=== PATIENT | female | born 1935 | race Asian ===

== ENCOUNTER 2018-04-27 17:23 | Inpatient (IN) | payer MEDICARE, OTHER ==
[~2018-04-27] VITALS: Ht 152.4 cm; Wt 61.4 kg
[2018-04-27 17:40] LABS: GLUCOSE,POINT OF CARE 123 MG/DL (70-110)
[2018-04-27 18:02] LABS: BASOPHILS % (AUTO) 1.6 % (0.0-2.0); EOSINOPHILS % (AUTO) 6.4 % (1.0-6.0); HEMATOCRIT 21.7 % (36-46); LYMPHOCYTES # (AUTO) 1.2 K/uL (1.0-4.8); LYMPHOCYTES % (AUTO) 21.5 % (22.0-44.0); MEAN CORPUSCULAR HEMOGLOBIN 26.6 pg (26.0-34.0); MEAN CORPUSCULAR HGB CONC 32.5 G/dL (31.0-37.0); MEAN CORPUSCULAR VOLUME 82 fL (80-100); MONOCYTES # (AUTO) 0.5 K/uL (0.1-1.0); MONOCYTES % (AUTO) 8.9 % (2.0-9.0); NEUTROPHILS # (AUTO) 3.3 K/uL (1.8-7.7); NEUTROPHILS % (AUTO) 61.6 % (40.0-70.0); RED BLOOD CELL COUNT(AUTO) 2.65 MIL/uL (4.00-5.20); RED CELL DISTRIBUTION WIDTH 16.5 % (11.5-14.5)
[2018-04-27 18:13] LABS: CALCIUM, TOTAL 8.1 mg/dL (8.8-10.5); CREATININE 3.81 mg/dL (0.60-1.30); POTASSIUM 5.3 mmol/L (3.5-5.1)
[2018-04-27 18:19] LABS: ALBUMIN 2.4 g/dL (3.4-5.0); BILIRUBIN,TOTAL 0.5 mg/dL (0.1-1.0); TOTAL PROTEIN, SERUM 6.6 g/dL (6.4-8.2)
[2018-04-27 18:50] LABS: PLATELET COUNT (AUTO) 71 K/uL (150-450)
[2018-04-27] MEDS ORDERED: GLIP5 PO (19:33)
[2018-04-27] MEDS ORDERED: ROSU10 PO (19:33)
[2018-04-27] MEDS: DOCUSATE SODIUM 100 MG CAPSULE PO SCH (20:40)
[2018-04-27] MEDS ORDERED: ACETAMINOPHEN 325 MG TABLET PO PRN ×2 (20:45)
[2018-04-27] MEDS ORDERED: 0.9% SODIUM CHLORIDE 10 ML SYRINGE IVP PRN (20:45)
[2018-04-27] MEDS ORDERED: ALBUTEROL SULFATE 2.5 MG/0.5 ML NEB SOLUTION NEB PRN (20:45)
[2018-04-27] MEDS ORDERED: ONDANSETRON HCL 4 MG/2 ML VIAL IVP PRN (20:45)
[2018-04-27] MEDS ORDERED: FUROSEMIDE 40 MG/4 ML VIAL IVP ONE (20:45)
[2018-04-27] MEDS ORDERED: BISACODYL 10 MG RECTAL RECTAL SUPPOSITORY PR PRN (20:45)
[2018-04-27] MEDS ORDERED: EPOETIN ALFA 10,000 UNITS/ML VIAL SQ ONE (21:00)
[2018-04-27] MEDS: SOD FERRIC GLUC COMPLX/SUCROSE 125 MG in SODIUM CHLORIDE 0.9% 100 ML IV SCH (21:06)
[2018-04-27] MEDS ORDERED: DEXTROSE 50%-WATER 25 GM/50 ML SYRINGE IVP PRN (21:45)
[2018-04-27 22:01] VITALS: BP 180/84
[2018-04-27 23:00] VITALS: BP 161/79
[2018-04-27] MEDS: AmLODIPine BESYLATE 10 MG TABLET PO SCH (23:58)
[2018-04-28] VITALS (14 sets, daily range): BP systolic 137–170; BP diastolic 50–79
[2018-04-28 06:58] LABS: BASOPHILS % (AUTO) 1.7 % (0.0-2.0); EOSINOPHILS % (AUTO) 10.9 % (1.0-6.0); LYMPHOCYTES # (AUTO) 0.5 K/uL (1.0-4.8); LYMPHOCYTES % (AUTO) 11.2 % (22.0-44.0); MEAN CORPUSCULAR HEMOGLOBIN 26.6 pg (26.0-34.0); MEAN CORPUSCULAR VOLUME 80 fL (80-100); MONOCYTES # (AUTO) 0.6 K/uL (0.1-1.0); MONOCYTES % (AUTO) 12.8 % (2.0-9.0); NEUTROPHILS # (AUTO) 3.1 K/uL (1.8-7.7); NEUTROPHILS % (AUTO) 63.4 % (40.0-70.0); PLATELET COUNT (AUTO) 65 K/uL (150-450); RED BLOOD CELL COUNT(AUTO) 2.39 MIL/uL (4.00-5.20); RED CELL DISTRIBUTION WIDTH 16.2 % (11.5-14.5)
[2018-04-28 07:16] LABS: HEMOGLOBIN 6.3 g/dL (12.0-16.0)
[2018-04-28 07:17] LABS: HEMATOCRIT 19.2 % (36-46)
[2018-04-28 07:21] LABS: ALBUMIN 2.2 g/dL (3.4-5.0); BILIRUBIN,TOTAL 0.5 mg/dL (0.1-1.0); CALCIUM, TOTAL 8.3 mg/dL (8.8-10.5); CREATININE 3.8 mg/dL (0.60-1.30); MAGNESIUM 2.2 mg/dL (1.80-2.40); PHOSPHORUS 5.1 mg/dL (2.5-4.9)
[2018-04-28] MEDS ORDERED: FUROSEMIDE 20 MG/2 ML VIAL IVP ONE (07:45)
[2018-04-28 08:09] LABS: GLUCOMETER DEV NAME(LOC) 5S.1; GLUCOSE,POINT OF CARE 95 MG/DL (70-110)
[2018-04-28] MEDS: ROSUVASTATIN CALCIUM 10 MG TABLET PO SCH (08:18)
[2018-04-28] MEDS: ASPIRIN 81 MG CHEWABLE TABLET PO SCH (08:18)
[2018-04-28] MEDS: PANTOPRAZOLE SODIUM 40 MG DR TABLET PO SCH (08:18)
[2018-04-28] MEDS: DOCUSATE SODIUM 100 MG CAPSULE PO SCH ×2 (08:18→20:34)
[2018-04-28] MEDS: CARVEDILOL 6.25 MG TABLET PO SCH ×2 (08:18→20:34)
[2018-04-28] MEDS ORDERED: SODIUM CHLORIDE 0.9% 500 ML IV ONE (08:59)
[2018-04-28 18:54] LABS: APPEARANCE,URINE CLEAR (CLEAR); BILIRUBIN,URINE NEGATIVE (NEGATIVE); GLUCOSE, URINE (UA) NEGATIVE (NEGATIVE); KETONES,URINE NEGATIVE (NEGATIVE); LEUKOCYTE ESTERASE ,URINE NEGATIVE (NEGATIVE); NITRATE,URINE NEGATIVE (NEGATIVE); OCCULT BLOOD,URINE NEGATIVE (NEGATIVE); PH,URINE 5.5 (5.0-8.0); PROTEIN,URINE SEE CONFIRM (NEGATIVE); UROBILINOGEN,URINE 0.2 mg/dL (<=1.0)
[2018-04-28 19:18] LABS: SULFOSALICYLIC ACID,URINE 3+ (Negative)
[2018-04-28 19:24] LABS: BACTERIA,URINE Rare /HPF (None Seen); RBC,URINE None Seen /HPF (0-2); SQUAMOUS EPITHELIAL CELL,UR Few /LPF (None Seen)
[2018-04-28 20:29] LABS: GLUCOMETER DEV NAME(LOC) 5S.1; GLUCOSE,POINT OF CARE 109 MG/DL (70-110)
[2018-04-28 20:29] LABS: GLUCOMETER DEV NAME(LOC) 5S.2; GLUCOSE,POINT OF CARE 100 MG/DL (70-110)
[2018-04-28] MEDS: AmLODIPine BESYLATE 10 MG TABLET PO SCH (20:34)
[2018-04-28] MEDS: SOD FERRIC GLUC COMPLX/SUCROSE 125 MG in SODIUM CHLORIDE 0.9% 100 ML IV SCH (20:34)
[2018-04-28 21:04] LABS: GLUCOMETER DEV NAME(LOC) 5S.1; GLUCOSE,POINT OF CARE 137 MG/DL (70-110)
[2018-04-28] MEDS ORDERED: SODIUM CHLORIDE 0.9% 250 ML IV ONE (21:36)
[2018-04-29] VITALS (7 sets, daily range): BP systolic 127–155; BP diastolic 41–63
[2018-04-29 06:34] LABS: EOSINOPHILS % (AUTO) 5.6 % (1.0-6.0); HEMATOCRIT 24.6 % (36-46); HEMOGLOBIN 8.2 g/dL (12.0-16.0); LYMPHOCYTES # (AUTO) 1.2 K/uL (1.0-4.8); LYMPHOCYTES % (AUTO) 23.8 % (22.0-44.0); MEAN CORPUSCULAR HEMOGLOBIN 27.8 pg (26.0-34.0); MEAN CORPUSCULAR HGB CONC 33.2 G/dL (31.0-37.0); MEAN CORPUSCULAR VOLUME 84 fL (80-100); MONOCYTES # (AUTO) 0.5 K/uL (0.1-1.0); MONOCYTES % (AUTO) 9.8 % (2.0-9.0); NEUTROPHILS # (AUTO) 3.1 K/uL (1.8-7.7); NEUTROPHILS % (AUTO) 59.8 % (40.0-70.0); PLATELET COUNT (AUTO) 74 K/uL (150-450); RED BLOOD CELL COUNT(AUTO) 2.93 MIL/uL (4.00-5.20); RED CELL DISTRIBUTION WIDTH 17.7 % (11.5-14.5)
[2018-04-29] MEDS: CARVEDILOL 6.25 MG TABLET PO SCH ×2 (08:48→21:21)
[2018-04-29] MEDS: PANTOPRAZOLE SODIUM 40 MG DR TABLET PO SCH (08:49)
[2018-04-29] MEDS: DOCUSATE SODIUM 100 MG CAPSULE PO SCH ×2 (08:49→21:21)
[2018-04-29] MEDS: ROSUVASTATIN CALCIUM 10 MG TABLET PO SCH (08:49)
[2018-04-29] MEDS: ASPIRIN 81 MG CHEWABLE TABLET PO SCH (08:49)
[2018-04-29 12:19] LABS: GLUCOMETER DEV NAME(LOC) 5S.1; GLUCOSE,POINT OF CARE 77 MG/DL (70-110)
[2018-04-29 12:20] LABS: GLUCOMETER DEV NAME(LOC) 5S.1; GLUCOSE,POINT OF CARE 111 MG/DL (70-110)
[2018-04-29] MEDS: FUROSEMIDE 40 MG/4 ML VIAL IVP SCH ×2 (14:49→21:20)
[2018-04-29] MEDS: AmLODIPine BESYLATE 10 MG TABLET PO SCH (21:20)
[2018-04-29] MEDS: SOD FERRIC GLUC COMPLX/SUCROSE 125 MG in SODIUM CHLORIDE 0.9% 100 ML IV SCH (21:20)
[2018-04-29 22:19] LABS: GLUCOMETER DEV NAME(LOC) 5S.1; GLUCOSE,POINT OF CARE 99 MG/DL (70-110)
[2018-04-29 22:20] LABS: GLUCOMETER DEV NAME(LOC) 5S.1; GLUCOSE,POINT OF CARE 108 MG/DL (70-110)
[2018-04-30 05:02] VITALS: BP 133/44
[2018-04-30 06:04] LABS: CALCIUM, TOTAL 8.4 mg/dL (8.8-10.5); CREATININE 3.83 mg/dL (0.60-1.30); MAGNESIUM 2.2 mg/dL (1.80-2.40); PHOSPHORUS 4.7 mg/dL (2.5-4.9); POTASSIUM 4.7 mmol/L (3.5-5.1)
[2018-04-30 07:28] VITALS: BP 147/63
[2018-04-30] MEDS: ASPIRIN 81 MG CHEWABLE TABLET PO SCH (08:25)
[2018-04-30] MEDS: PANTOPRAZOLE SODIUM 40 MG DR TABLET PO SCH (08:25)
[2018-04-30] MEDS: ROSUVASTATIN CALCIUM 10 MG TABLET PO SCH (08:25)
[2018-04-30] MEDS: CARVEDILOL 6.25 MG TABLET PO SCH ×2 (08:25→21:17)
[2018-04-30] MEDS: DOCUSATE SODIUM 100 MG CAPSULE PO SCH ×2 (08:25→21:17)
[2018-04-30] MEDS: FUROSEMIDE 40 MG/4 ML VIAL IVP SCH ×2 (08:26→21:17)
[2018-04-30 10:58] LABS: GLUCOMETER DEV NAME(LOC) 5S.1; GLUCOSE,POINT OF CARE 76 MG/DL (70-110)
[2018-04-30 12:02] VITALS: BP 151/66
[2018-04-30 15:15] LABS: GLUCOMETER DEV NAME(LOC) 5S.2; GLUCOSE,POINT OF CARE 115 MG/DL (70-110)
[2018-04-30 17:18] VITALS: BP 160/61
[2018-04-30 19:42] VITALS: BP 154/65
[2018-04-30] MEDS: AmLODIPine BESYLATE 10 MG TABLET PO SCH (21:16)
[2018-04-30] MEDS: SOD FERRIC GLUC COMPLX/SUCROSE 125 MG in SODIUM CHLORIDE 0.9% 100 ML IV SCH (21:18)
[2018-04-30 23:32] VITALS: BP 135/52
[2018-05-01 03:50] VITALS: BP 135/56
[2018-05-01 06:09] LABS: GLUCOMETER DEV NAME(LOC) 5S.1; GLUCOSE,POINT OF CARE 114 MG/DL (70-110)
[2018-05-01 06:09] LABS: GLUCOMETER DEV NAME(LOC) 5S.1; GLUCOSE,POINT OF CARE 130 MG/DL (70-110)
[2018-05-01 07:01] VITALS: BP 143/49
[2018-05-01] MEDS: CARVEDILOL 6.25 MG TABLET PO SCH ×2 (08:01→20:19)
[2018-05-01] MEDS: DOCUSATE SODIUM 100 MG CAPSULE PO SCH ×2 (08:01→20:19)
[2018-05-01] MEDS: PANTOPRAZOLE SODIUM 40 MG DR TABLET PO SCH (08:01)
[2018-05-01] MEDS: ROSUVASTATIN CALCIUM 10 MG TABLET PO SCH (08:01)
[2018-05-01] MEDS: ASPIRIN 81 MG CHEWABLE TABLET PO SCH (08:01)
[2018-05-01] MEDS: FUROSEMIDE 40 MG/4 ML VIAL IVP SCH ×2 (08:01→20:19)
[2018-05-01] MEDS: EPOETIN ALFA 10,000 UNITS/ML VIAL SQ SCH (08:02)
[2018-05-01 08:04] LABS: GLUCOMETER DEV NAME(LOC) 5S.2; GLUCOSE,POINT OF CARE 82 MG/DL (70-110)
[2018-05-01 10:30] LABS: BASOPHILS % (AUTO) 1.4 % (0.0-2.0); HEMATOCRIT 25.2 % (36-46); HEMOGLOBIN 8.2 g/dL (12.0-16.0); LYMPHOCYTES % (AUTO) 18.6 % (22.0-44.0); MEAN CORPUSCULAR HEMOGLOBIN 27.3 pg (26.0-34.0); MEAN CORPUSCULAR HGB CONC 32.7 G/dL (31.0-37.0); MEAN CORPUSCULAR VOLUME 84 fL (80-100); MONOCYTES # (AUTO) 0.5 K/uL (0.1-1.0); MONOCYTES % (AUTO) 9.9 % (2.0-9.0); NEUTROPHILS # (AUTO) 3.4 K/uL (1.8-7.7); NEUTROPHILS % (AUTO) 64.1 % (40.0-70.0); PLATELET COUNT (AUTO) 80 K/uL (150-450); RED BLOOD CELL COUNT(AUTO) 3.02 MIL/uL (4.00-5.20); RED CELL DISTRIBUTION WIDTH 17.8 % (11.5-14.5)
[2018-05-01 10:36] LABS: INR 1.2 (0.9-1.1)
[2018-05-01 10:37] LABS: CALCIUM, TOTAL 8.4 mg/dL (8.8-10.5); CREATININE 3.92 mg/dL (0.60-1.30); POTASSIUM 4.5 mmol/L (3.5-5.1)
[2018-05-01 10:49] LABS: ALBUMIN 2.4 g/dL (3.4-5.0); BILIRUBIN,TOTAL 0.6 mg/dL (0.1-1.0); TOTAL PROTEIN, SERUM 6.3 g/dL (6.4-8.2)
[2018-05-01 11:39] VITALS: BP 145/61
[2018-05-01 13:24] LABS: GLUCOMETER DEV NAME(LOC) 5S.1; GLUCOSE,POINT OF CARE 86 MG/DL (70-110)
[2018-05-01] MEDS ORDERED: HEPARIN SODIUM,PORCINE 1,000 UNITS/ML 10 ML VIAL ONE (13:31)
[2018-05-01] MEDS ORDERED: HEPARIN SODIUM 1000 UNITS/NS 500 ML ONE (13:31)
[2018-05-01] MEDS ORDERED: FentaNYL CITRATE-PF 100 MCG/2 ML VIAL ONE (14:05)
[2018-05-01] MEDS ORDERED: NALOXONE HCL 0.4 MG/ML VIAL ONE (14:05)
[2018-05-01] MEDS ORDERED: MIDAZOLAM HCL 2 MG/2 ML VIAL ONE (14:05)
[2018-05-01] MEDS ORDERED: FLUMAZENIL 0.1 MG/ML 5 ML VIAL IVP ONE (14:05)
[2018-05-01] MEDS ORDERED: MIDAZOLAM HCL 2 MG/2 ML VIAL IVP ONE (14:30)
[2018-05-01] MEDS ORDERED: FentaNYL CITRATE-PF 100 MCG/2 ML VIAL IVP ONE (14:30)
[2018-05-01] MEDS ORDERED: CeFAZolin 1 GM/DEXTROSE 50 ML IV ONE (14:30)
[2018-05-01 15:54] VITALS: BP 167/64
[2018-05-01 18:34] LABS: GLUCOMETER DEV NAME(LOC) 5S.2; GLUCOSE,POINT OF CARE 88 MG/DL (70-110)
[2018-05-01 20:13] VITALS: BP 150/63
[2018-05-01] MEDS: SOD FERRIC GLUC COMPLX/SUCROSE 125 MG in SODIUM CHLORIDE 0.9% 100 ML IV SCH (20:19)
[2018-05-01] MEDS: AmLODIPine BESYLATE 10 MG TABLET PO SCH (20:20)
[2018-05-01 21:14] LABS: GLUCOMETER DEV NAME(LOC) 5S.1; GLUCOSE,POINT OF CARE 109 MG/DL (70-110)
[2018-05-01 23:51] VITALS: BP 132/67
[2018-05-02 04:45] VITALS: BP 117/57
[2018-05-02 05:24] LABS: GLUCOMETER DEV NAME(LOC) 5S.1; GLUCOSE,POINT OF CARE 98 MG/DL (70-110)
[2018-05-02 07:24] LABS: BASOPHILS % (AUTO) 1.5 % (0.0-2.0); EOSINOPHILS % (AUTO) 4.4 % (1.0-6.0); HEMATOCRIT 25.7 % (36-46); HEMOGLOBIN 8.4 g/dL (12.0-16.0); LYMPHOCYTES # (AUTO) 0.6 K/uL (1.0-4.8); LYMPHOCYTES % (AUTO) 10.3 % (22.0-44.0); MEAN CORPUSCULAR HEMOGLOBIN 27.8 pg (26.0-34.0); MEAN CORPUSCULAR HGB CONC 32.9 G/dL (31.0-37.0); MEAN CORPUSCULAR VOLUME 85 fL (80-100); MONOCYTES # (AUTO) 0.7 K/uL (0.1-1.0); NEUTROPHILS # (AUTO) 4.5 K/uL (1.8-7.7); NEUTROPHILS % (AUTO) 72.8 % (40.0-70.0); PLATELET COUNT (AUTO) 75 K/uL (150-450); RED BLOOD CELL COUNT(AUTO) 3.03 MIL/uL (4.00-5.20); RED CELL DISTRIBUTION WIDTH 18.1 % (11.5-14.5)
[2018-05-02] MEDS ORDERED: SODIUM CHLORIDE 0.9% 2,000 ML IV ONE (07:39)
[2018-05-02] MEDS: FUROSEMIDE 40 MG/4 ML VIAL IVP SCH ×2 (07:42→20:23)
[2018-05-02] MEDS: ASPIRIN 81 MG CHEWABLE TABLET PO SCH (07:42)
[2018-05-02] MEDS: DOCUSATE SODIUM 100 MG CAPSULE PO SCH ×2 (07:42→20:24)
[2018-05-02] MEDS: ROSUVASTATIN CALCIUM 10 MG TABLET PO SCH (07:42)
[2018-05-02] MEDS: PANTOPRAZOLE SODIUM 40 MG DR TABLET PO SCH (07:43)
[2018-05-02] MEDS: CARVEDILOL 6.25 MG TABLET PO SCH ×3 (07:47→20:24)
[2018-05-02 07:57] LABS: ALBUMIN 2.3 g/dL (3.4-5.0); BILIRUBIN,TOTAL 0.6 mg/dL (0.1-1.0); CALCIUM, TOTAL 8.5 mg/dL (8.8-10.5); CREATININE 3.86 mg/dL (0.60-1.30); POTASSIUM 4.4 mmol/L (3.5-5.1); TOTAL PROTEIN, SERUM 6.2 g/dL (6.4-8.2)
[2018-05-02 08:13] VITALS: BP 140/59
[2018-05-02] MEDS ORDERED: HEPARIN SODIUM,PORCINE 1,000 UNITS/ML VIAL IVP ONE ×2 (12:00)
[2018-05-02 12:15] VITALS: BP 180/69
[2018-05-02 13:30] VITALS: BP 136/63
[2018-05-02] MEDS ORDERED: HEPARIN SODIUM,PORCINE 1,000 UNITS/ML VIAL ONE (15:11)
[2018-05-02 15:20] VITALS: BP 159/55
[2018-05-02] MEDS: INSULIN LISPRO 100 UNITS/ML SQ PRN (17:59)
[2018-05-02 20:00] VITALS: BP 144/49
[2018-05-02] MEDS: SOD FERRIC GLUC COMPLX/SUCROSE 125 MG in SODIUM CHLORIDE 0.9% 100 ML IV SCH (20:24)
[2018-05-02] MEDS: AmLODIPine BESYLATE 10 MG TABLET PO SCH (20:24)
[2018-05-03 01:35] VITALS: BP 134/55
[2018-05-03 04:58] VITALS: BP 147/50
[2018-05-03 06:20] LABS: GLUCOMETER DEV NAME(LOC) 5S.1; GLUCOSE,POINT OF CARE 186 MG/DL (70-110)
[2018-05-03 07:03] LABS: BASOPHILS % (AUTO) 0.8 % (0.0-2.0); EOSINOPHILS % (AUTO) 7.6 % (1.0-6.0); HEMATOCRIT 25.2 % (36-46); HEMOGLOBIN 8.2 g/dL (12.0-16.0); LYMPHOCYTES # (AUTO) 1.3 K/uL (1.0-4.8); LYMPHOCYTES % (AUTO) 19.4 % (22.0-44.0); MEAN CORPUSCULAR HEMOGLOBIN 27.5 pg (26.0-34.0); MEAN CORPUSCULAR HGB CONC 32.6 G/dL (31.0-37.0); MEAN CORPUSCULAR VOLUME 84 fL (80-100); MONOCYTES # (AUTO) 0.8 K/uL (0.1-1.0); MONOCYTES % (AUTO) 12.5 % (2.0-9.0); NEUTROPHILS # (AUTO) 3.9 K/uL (1.8-7.7); NEUTROPHILS % (AUTO) 59.7 % (40.0-70.0); PLATELET COUNT (AUTO) 60 K/uL (150-450); RED BLOOD CELL COUNT(AUTO) 2.99 MIL/uL (4.00-5.20); RED CELL DISTRIBUTION WIDTH 18.3 % (11.5-14.5)
[2018-05-03 07:26] LABS: ALBUMIN 2.2 g/dL (3.4-5.0); BILIRUBIN,TOTAL 0.6 mg/dL (0.1-1.0); CALCIUM, TOTAL 8.3 mg/dL (8.8-10.5); CREATININE 3.02 mg/dL (0.60-1.30); POTASSIUM 3.7 mmol/L (3.5-5.1); TOTAL PROTEIN, SERUM 5.8 g/dL (6.4-8.2)
[2018-05-03 07:52] VITALS: BP 142/48
[2018-05-03] MEDS: FUROSEMIDE 40 MG/4 ML VIAL IVP SCH ×2 (08:57→20:26)
[2018-05-03] MEDS: PANTOPRAZOLE SODIUM 40 MG DR TABLET PO SCH (08:57)
[2018-05-03] MEDS: ROSUVASTATIN CALCIUM 10 MG TABLET PO SCH (08:57)
[2018-05-03] MEDS: ASPIRIN 81 MG CHEWABLE TABLET PO SCH (08:57)
[2018-05-03] MEDS: DOCUSATE SODIUM 100 MG CAPSULE PO SCH ×2 (08:57→20:27)
[2018-05-03] MEDS: EPOETIN ALFA 10,000 UNITS/ML VIAL SQ SCH (08:57)
[2018-05-03] MEDS: CARVEDILOL 6.25 MG TABLET PO SCH ×2 (09:00→20:27)
[2018-05-03 09:49] LABS: GLUCOMETER DEV NAME(LOC) 5S.2; GLUCOSE,POINT OF CARE 148 MG/DL (70-110)
[2018-05-03 09:49] LABS: GLUCOMETER DEV NAME(LOC) 5S.2; GLUCOSE,POINT OF CARE 98 MG/DL (70-110)
[2018-05-03 09:49] LABS: GLUCOMETER DEV NAME(LOC) 5S.2; GLUCOSE,POINT OF CARE 70 MG/DL (70-110)
[2018-05-03 11:36] VITALS: BP 153/64
[2018-05-03 14:10] LABS: GLUCOMETER DEV NAME(LOC) 5S.2; GLUCOSE,POINT OF CARE 100 MG/DL (70-110)
[2018-05-03 17:18] VITALS: BP 156/60
[2018-05-03 20:09] VITALS: BP 167/65
[2018-05-03] MEDS: SOD FERRIC GLUC COMPLX/SUCROSE 125 MG in SODIUM CHLORIDE 0.9% 100 ML IV SCH (20:26)
[2018-05-03] MEDS: AmLODIPine BESYLATE 10 MG TABLET PO SCH (20:27)
[2018-05-03 22:09] LABS: GLUCOMETER DEV NAME(LOC) 5S.2; GLUCOSE,POINT OF CARE 125 MG/DL (70-110)
[2018-05-03 23:39] LABS: GLUCOMETER DEV NAME(LOC) 5S.1; GLUCOSE,POINT OF CARE 118 MG/DL (70-110)
[2018-05-04 00:03] VITALS: BP 151/60
[2018-05-04 04:05] VITALS: BP 136/51
[2018-05-04 06:54] LABS: GLUCOMETER DEV NAME(LOC) 5S.1; GLUCOSE,POINT OF CARE 79 MG/DL (70-110)
[2018-05-04 07:10] LABS: EOSINOPHILS % (AUTO) 8.4 % (1.0-6.0); HEMATOCRIT 25.8 % (36-46); HEMOGLOBIN 8.3 g/dL (12.0-16.0); LYMPHOCYTES # (AUTO) 1.2 K/uL (1.0-4.8); LYMPHOCYTES % (AUTO) 17.4 % (22.0-44.0); MEAN CORPUSCULAR HEMOGLOBIN 27.4 pg (26.0-34.0); MEAN CORPUSCULAR HGB CONC 32.2 G/dL (31.0-37.0); MEAN CORPUSCULAR VOLUME 85 fL (80-100); MONOCYTES # (AUTO) 0.8 K/uL (0.1-1.0); MONOCYTES % (AUTO) 12.2 % (2.0-9.0); NEUTROPHILS # (AUTO) 4.1 K/uL (1.8-7.7); PLATELET COUNT (AUTO) 62 K/uL (150-450); RED BLOOD CELL COUNT(AUTO) 3.03 MIL/uL (4.00-5.20)
[2018-05-04 07:17] LABS: ALBUMIN 2.2 g/dL (3.4-5.0); BILIRUBIN,TOTAL 0.7 mg/dL (0.1-1.0); CALCIUM, TOTAL 8.3 mg/dL (8.8-10.5); CREATININE 3.16 mg/dL (0.60-1.30); POTASSIUM 3.4 mmol/L (3.5-5.1)
[2018-05-04] MEDS: ASPIRIN 81 MG CHEWABLE TABLET PO SCH (08:21)
[2018-05-04] MEDS: PANTOPRAZOLE SODIUM 40 MG DR TABLET PO SCH (08:21)
[2018-05-04] MEDS: ROSUVASTATIN CALCIUM 10 MG TABLET PO SCH (08:21)
[2018-05-04] MEDS: DOCUSATE SODIUM 100 MG CAPSULE PO SCH ×2 (08:22→20:05)
[2018-05-04] MEDS: FUROSEMIDE 40 MG/4 ML VIAL IVP SCH ×2 (08:27→20:06)
[2018-05-04 08:50] VITALS: BP 159/51
[2018-05-04] MEDS: CARVEDILOL 6.25 MG TABLET PO SCH ×2 (09:00→20:05)
[2018-05-04 11:18] VITALS: BP 149/60
[2018-05-04] MEDS ORDERED: HEPARIN SODIUM,PORCINE 1,000 UNITS/ML VIAL IVP ONE (11:42)
[2018-05-04] MEDS ORDERED: SODIUM CHLORIDE 0.9% 2,000 ML IV ONE ×2 (12:39→13:32)
[2018-05-04 15:19] LABS: GLUCOMETER DEV NAME(LOC) 5S.2; GLUCOSE,POINT OF CARE 74 MG/DL (70-110)
[2018-05-04 15:50] VITALS: BP 185/77
[2018-05-04] MEDS: AmLODIPine BESYLATE 10 MG TABLET PO SCH (20:05)
[2018-05-04] MEDS: SOD FERRIC GLUC COMPLX/SUCROSE 125 MG in SODIUM CHLORIDE 0.9% 100 ML IV SCH (20:05)
[2018-05-04 20:28] VITALS: BP 185/62
[2018-05-05] VITALS (7 sets, daily range): BP systolic 124–178; BP diastolic 49–73
[2018-05-05] MEDS ORDERED: SODIUM CHLORIDE 0.9% 1,000 ML IV ONE (06:30)
[2018-05-05] MEDS ORDERED: HEPARIN SODIUM,PORCINE 5,000 UNITS/ML VIAL ONE (07:19)
[2018-05-05] MEDS ORDERED: SODIUM CHLORIDE 0.9% 10 ML ONE (07:20)
[2018-05-05] MEDS ORDERED: LIDOCAINE/PF 1% 30 ML VIAL ONE (07:20)
[2018-05-05 07:32] LABS: EOSINOPHILS % (AUTO) 7.9 % (1.0-6.0); HEMATOCRIT 26.9 % (36-46); HEMOGLOBIN 8.6 g/dL (12.0-16.0); LYMPHOCYTES # (AUTO) 1.1 K/uL (1.0-4.8); LYMPHOCYTES % (AUTO) 12.2 % (22.0-44.0); MEAN CORPUSCULAR HEMOGLOBIN 27.7 pg (26.0-34.0); MEAN CORPUSCULAR HGB CONC 32.1 G/dL (31.0-37.0); MEAN CORPUSCULAR VOLUME 86 fL (80-100); MONOCYTES % (AUTO) 11.6 % (2.0-9.0); NEUTROPHILS % (AUTO) 67.3 % (40.0-70.0); PLATELET COUNT (AUTO) 50 K/uL (150-450); RED BLOOD CELL COUNT(AUTO) 3.12 MIL/uL (4.00-5.20); RED CELL DISTRIBUTION WIDTH 19.5 % (11.5-14.5)
[2018-05-05 07:46] LABS: ALBUMIN 2.4 g/dL (3.4-5.0); BILIRUBIN,TOTAL 1.1 mg/dL (0.1-1.0); CALCIUM, TOTAL 8.1 mg/dL (8.8-10.5); CREATININE 2.23 mg/dL (0.60-1.30); POTASSIUM 3.2 mmol/L (3.5-5.1); TOTAL PROTEIN, SERUM 6.4 g/dL (6.4-8.2)
[2018-05-05] MEDS ORDERED: ONDANSETRON HCL 4 MG/2 ML VIAL ONE (09:10)
[2018-05-05] MEDS ORDERED: ONDANSETRON HCL 4 MG/2 ML VIAL IVP ONE (09:15)
[2018-05-05] MEDS ORDERED: HEPARIN SODIUM,PORCINE 1,000 UNITS/ML VIAL IVP ONE ×2 (10:51→12:00)
[2018-05-05 11:05] LABS: GLUCOMETER DEV NAME(LOC) 5S.2; GLUCOSE,POINT OF CARE 74 MG/DL (70-110)
[2018-05-05 11:09] LABS: GLUCOMETER DEV NAME(LOC) 5S.1; GLUCOSE,POINT OF CARE 102 MG/DL (70-110)
[2018-05-05 11:10] LABS: GLUCOMETER DEV NAME(LOC) 5S.1; GLUCOSE,POINT OF CARE 152 MG/DL (70-110)
[2018-05-05] MEDS ORDERED: KETAMINE HCL 50 MG/ML 10 ML VIAL IVP ONE (12:00)
[2018-05-05] MEDS ORDERED: PROPOFOL 1% 20 ML VIAL IVP ONE (12:00)
[2018-05-05] MEDS ORDERED: LIDOCAINE/PF 2% 5 ML VIAL INJ ONE (12:00)
[2018-05-05] MEDS ORDERED: MIDAZOLAM HCL 2 MG/2 ML VIAL IVP ONE (12:00)
[2018-05-05] MEDS ORDERED: HEPARIN SODIUM,PORCINE 1,000 UNITS/ML 10 ML VIAL IVP ONE (12:00)
[2018-05-05] MEDS: ASPIRIN 81 MG CHEWABLE TABLET PO SCH (12:36)
[2018-05-05 13:29] LABS: GLUCOMETER DEV NAME(LOC) 5S.1; GLUCOSE,POINT OF CARE 102 MG/DL (70-110)
[2018-05-05] MEDS: FUROSEMIDE 40 MG/4 ML VIAL IVP SCH ×2 (15:38→21:46)
[2018-05-05] MEDS: PANTOPRAZOLE SODIUM 40 MG DR TABLET PO SCH (15:38)
[2018-05-05] MEDS: ROSUVASTATIN CALCIUM 10 MG TABLET PO SCH (15:38)
[2018-05-05] MEDS: CARVEDILOL 6.25 MG TABLET PO SCH ×2 (15:38→21:00)
[2018-05-05] MEDS: EPOETIN ALFA 10,000 UNITS/ML VIAL SQ SCH (15:39)
[2018-05-05] MEDS: DOCUSATE SODIUM 100 MG CAPSULE PO SCH ×2 (15:39→21:47)
[2018-05-05] MEDS: AmLODIPine BESYLATE 10 MG TABLET PO SCH (21:48)
[2018-05-05] MEDS: SOD FERRIC GLUC COMPLX/SUCROSE 125 MG in SODIUM CHLORIDE 0.9% 100 ML IV SCH (21:49)
[2018-05-06 01:34] LABS: GLUCOMETER DEV NAME(LOC) 5S.2; GLUCOSE,POINT OF CARE 124 MG/DL (70-110)
[2018-05-06 01:34] LABS: GLUCOMETER DEV NAME(LOC) 5S.2; GLUCOSE,POINT OF CARE 101 MG/DL (70-110)
[2018-05-06 05:14] VITALS: BP 133/51
[2018-05-06 07:50] LABS: BILIRUBIN,TOTAL 1.6 mg/dL (0.1-1.0); CALCIUM, TOTAL 7.7 mg/dL (8.8-10.5); CREATININE 2.23 mg/dL (0.60-1.30); PHOSPHORUS 2.7 mg/dL (2.5-4.9); POTASSIUM 3.2 mmol/L (3.5-5.1); TOTAL PROTEIN, SERUM 5.5 g/dL (6.4-8.2)
[2018-05-06 08:02] LABS: BASOPHILS % (AUTO) 0.9 % (0.0-2.0); HEMATOCRIT 23.9 % (36-46); HEMOGLOBIN 7.6 g/dL (12.0-16.0); LYMPHOCYTES # (AUTO) 0.7 K/uL (1.0-4.8); LYMPHOCYTES % (AUTO) 9.7 % (22.0-44.0); MEAN CORPUSCULAR HEMOGLOBIN 26.9 pg (26.0-34.0); MEAN CORPUSCULAR HGB CONC 31.7 G/dL (31.0-37.0); MEAN CORPUSCULAR VOLUME 85 fL (80-100); MONOCYTES # (AUTO) 1.1 K/uL (0.1-1.0); MONOCYTES % (AUTO) 15.3 % (2.0-9.0); NEUTROPHILS # (AUTO) 4.6 K/uL (1.8-7.7); NEUTROPHILS % (AUTO) 66.1 % (40.0-70.0); PLATELET COUNT (AUTO) 43 K/uL (150-450); RED BLOOD CELL COUNT(AUTO) 2.81 MIL/uL (4.00-5.20); RED CELL DISTRIBUTION WIDTH 20.9 % (11.5-14.5)
[2018-05-06] MEDS: FUROSEMIDE 40 MG/4 ML VIAL IVP SCH (08:23)
[2018-05-06] MEDS: PANTOPRAZOLE SODIUM 40 MG DR TABLET PO SCH (08:23)
[2018-05-06] MEDS: ASPIRIN 81 MG CHEWABLE TABLET PO SCH (08:23)
[2018-05-06] MEDS: DOCUSATE SODIUM 100 MG CAPSULE PO SCH ×2 (08:24→20:03)
[2018-05-06] MEDS: ROSUVASTATIN CALCIUM 10 MG TABLET PO SCH (08:24)
[2018-05-06] MEDS: CARVEDILOL 6.25 MG TABLET PO SCH ×2 (08:29→20:03)
[2018-05-06] MEDS ORDERED: POTASSIUM CHLORIDE 20 MEQ ER TABLET PO ONE (08:45)
[2018-05-06 08:54] VITALS: BP 122/44
[2018-05-06 11:16] VITALS: BP 129/44
[2018-05-06 14:20] LABS: GLUCOMETER DEV NAME(LOC) 5S.1; GLUCOSE,POINT OF CARE 80 MG/DL (70-110)
[2018-05-06 15:45] VITALS: BP 134/47
[2018-05-06 19:30] VITALS: BP 140/58
[2018-05-06] MEDS: AmLODIPine BESYLATE 10 MG TABLET PO SCH (20:03)
[2018-05-06] MEDS: SOD FERRIC GLUC COMPLX/SUCROSE 125 MG in SODIUM CHLORIDE 0.9% 100 ML IV SCH (20:06)
[2018-05-06 20:19] LABS: GLUCOMETER DEV NAME(LOC) 5S.2; GLUCOSE,POINT OF CARE 181 MG/DL (70-110)
[2018-05-06 20:19] LABS: GLUCOMETER DEV NAME(LOC) 5S.2; GLUCOSE,POINT OF CARE 142 MG/DL (70-110)
[2018-05-06] MEDS ORDERED: SODIUM CHLORIDE 0.9% 250 ML IV ONE (22:56)
[2018-05-06 23:36] VITALS: BP 131/48
[2018-05-07 06:50] LABS: GLUCOMETER DEV NAME(LOC) 5S.1; GLUCOSE,POINT OF CARE 125 MG/DL (70-110)
[2018-05-07 06:51] LABS: GLUCOMETER DEV NAME(LOC) 5S.1; GLUCOSE,POINT OF CARE 83 MG/DL (70-110)
[2018-05-07 07:01] VITALS: BP 126/49
[2018-05-07 07:49] LABS: HEMATOCRIT 22.3 % (36-46); HEMOGLOBIN 7.2 g/dL (12.0-16.0); MEAN CORPUSCULAR HEMOGLOBIN 27.7 pg (26.0-34.0); MEAN CORPUSCULAR HGB CONC 32.3 G/dL (31.0-37.0); MEAN CORPUSCULAR VOLUME 86 fL (80-100); RED CELL DISTRIBUTION WIDTH 21.1 % (11.5-14.5)
[2018-05-07 07:51] LABS: PLATELET COUNT (AUTO) 49 K/uL (150-450)
[2018-05-07 07:58] LABS: ALBUMIN 2.2 g/dL (3.4-5.0); BILIRUBIN,TOTAL 2.4 mg/dL (0.1-1.0); CALCIUM, TOTAL 7.7 mg/dL (8.8-10.5); CREATININE 3.09 mg/dL (0.60-1.30); POTASSIUM 4.1 mmol/L (3.5-5.1); TOTAL PROTEIN, SERUM 5.8 g/dL (6.4-8.2)
[2018-05-07] MEDS: CARVEDILOL 6.25 MG TABLET PO SCH ×2 (08:31→20:23)
[2018-05-07] MEDS: ROSUVASTATIN CALCIUM 10 MG TABLET PO SCH (08:32)
[2018-05-07] MEDS: PANTOPRAZOLE SODIUM 40 MG DR TABLET PO SCH (08:32)
[2018-05-07] MEDS: DOCUSATE SODIUM 100 MG CAPSULE PO SCH ×2 (08:32→20:23)
[2018-05-07] MEDS: ASPIRIN 81 MG CHEWABLE TABLET PO SCH (08:32)
[2018-05-07 09:58] LABS: BAND NEUTROPHILS % (MANUAL) 5 % (0-5); EOSINOPHILS % (MANUAL) 10 % (1-6); LYMPHOCYTES % (MANUAL) 17 % (22-44); MONOCYTES % (MANUAL) 10 % (2-9); SEGMENTED NEUTROPHILS % 58 % (40-70)
[2018-05-07 12:45] LABS: GLUCOMETER DEV NAME(LOC) 5S.1; GLUCOSE,POINT OF CARE 99 MG/DL (70-110)
[2018-05-07 16:05] VITALS: BP 145/53
[2018-05-07 19:42] VITALS: BP 152/60
[2018-05-07] MEDS: AmLODIPine BESYLATE 10 MG TABLET PO SCH (20:23)
[2018-05-07] MEDS: SOD FERRIC GLUC COMPLX/SUCROSE 125 MG in SODIUM CHLORIDE 0.9% 100 ML IV SCH (20:24)
[2018-05-08 00:45] LABS: GLUCOMETER DEV NAME(LOC) 5S.1; GLUCOSE,POINT OF CARE 123 MG/DL (70-110)
[2018-05-08 00:45] LABS: GLUCOMETER DEV NAME(LOC) 5S.1; GLUCOSE,POINT OF CARE 96 MG/DL (70-110)
[2018-05-08 04:01] VITALS: BP 132/77
[2018-05-08 06:30] LABS: GLUCOMETER DEV NAME(LOC) 5S.2; GLUCOSE,POINT OF CARE 77 MG/DL (70-110)
[2018-05-08 08:02] VITALS: BP 147/52
[2018-05-08] MEDS ORDERED: SODIUM CHLORIDE 0.9% 3,000 ML IV ONE (08:06)
[2018-05-08 08:36] LABS: HEMATOCRIT 23.6 % (36-46); HEMOGLOBIN 7.7 g/dL (12.0-16.0); MEAN CORPUSCULAR HEMOGLOBIN 27.8 pg (26.0-34.0); MEAN CORPUSCULAR HGB CONC 32.5 G/dL (31.0-37.0); MEAN CORPUSCULAR VOLUME 85 fL (80-100); PLATELET COUNT (AUTO) 61 K/uL (150-450); RED BLOOD CELL COUNT(AUTO) 2.77 MIL/uL (4.00-5.20); RED CELL DISTRIBUTION WIDTH 21.3 % (11.5-14.5)
[2018-05-08] MEDS: CARVEDILOL 6.25 MG TABLET PO SCH ×2 (09:00→20:39)
[2018-05-08 09:01] LABS: ALBUMIN 2.4 g/dL (3.4-5.0); BILIRUBIN,TOTAL 1.5 mg/dL (0.1-1.0); CREATININE 3.51 mg/dL (0.60-1.30); POTASSIUM 4.2 mmol/L (3.5-5.1); TOTAL PROTEIN, SERUM 6.2 g/dL (6.4-8.2)
[2018-05-08 10:54] LABS: GLUCOMETER DEV NAME(LOC) 5S.2; GLUCOSE,POINT OF CARE 115 MG/DL (70-110)
[2018-05-08 11:18] LABS: BAND NEUTROPHILS % (MANUAL) 4 % (0-5); EOSINOPHILS % (MANUAL) 9 % (1-6); LYMPHOCYTES % (MANUAL) 15 % (22-44); MONOCYTES % (MANUAL) 12 % (2-9); SEGMENTED NEUTROPHILS % 60 % (40-70)
[2018-05-08 11:42] VITALS: BP 127/50
[2018-05-08] MEDS: ROSUVASTATIN CALCIUM 10 MG TABLET PO SCH (12:55)
[2018-05-08] MEDS: DOCUSATE SODIUM 100 MG CAPSULE PO SCH ×2 (12:55→20:39)
[2018-05-08] MEDS: ASPIRIN 81 MG CHEWABLE TABLET PO SCH (12:55)
[2018-05-08] MEDS: PANTOPRAZOLE SODIUM 40 MG DR TABLET PO SCH (12:56)
[2018-05-08] MEDS: EPOETIN ALFA 10,000 UNITS/ML VIAL SQ SCH (12:57)
[2018-05-08 15:06] VITALS: BP 140/47
[2018-05-08] MEDS ORDERED: HEPARIN SODIUM,PORCINE 1,000 UNITS/ML VIAL IVP ONE (16:10)
[2018-05-08 16:55] LABS: % IRON SATURATION 29.1 % (22-44)
[2018-05-08 16:59] LABS: D-DIMER 4.21 mg/L FEU (0.00-0.50); INR 1.1 (0.9-1.1); PROTHROMBIN TIME 11.1 SEC (9.4-11.6)
[2018-05-08] MEDS: INSULIN LISPRO 100 UNITS/ML SQ PRN (18:03)
[2018-05-08 19:51] VITALS: BP 143/54
[2018-05-08] MEDS: AmLODIPine BESYLATE 10 MG TABLET PO SCH (20:39)
[2018-05-08] MEDS: SOD FERRIC GLUC COMPLX/SUCROSE 125 MG in SODIUM CHLORIDE 0.9% 100 ML IV SCH (20:40)
[2018-05-08 23:44] VITALS: BP 118/69
[2018-05-09 03:49] LABS: GLUCOMETER DEV NAME(LOC) 5S.1; GLUCOSE,POINT OF CARE 196 MG/DL (70-110)
[2018-05-09 03:49] LABS: GLUCOMETER DEV NAME(LOC) 5S.1; GLUCOSE,POINT OF CARE 69 MG/DL (70-110)
[2018-05-09 03:49] LABS: GLUCOMETER DEV NAME(LOC) 5S.1; GLUCOSE,POINT OF CARE 84 MG/DL (70-110)
[2018-05-09 03:49] LABS: GLUCOMETER DEV NAME(LOC) 5S.1; GLUCOSE,POINT OF CARE 68 MG/DL (70-110)
[2018-05-09 04:50] VITALS: BP 140/50
[2018-05-09 06:36] LABS: GLUCOMETER DEV NAME(LOC) 5S.2; GLUCOSE,POINT OF CARE 83 MG/DL (70-110)
[2018-05-09 06:57] LABS: BASOPHILS % (AUTO) 1.3 % (0.0-2.0); HEMATOCRIT 22.8 % (36-46); HEMOGLOBIN 7.4 g/dL (12.0-16.0); LYMPHOCYTES # (AUTO) 0.6 K/uL (1.0-4.8); LYMPHOCYTES % (AUTO) 10.6 % (22.0-44.0); MEAN CORPUSCULAR HEMOGLOBIN 27.8 pg (26.0-34.0); MEAN CORPUSCULAR HGB CONC 32.2 G/dL (31.0-37.0); MEAN CORPUSCULAR VOLUME 86 fL (80-100); MONOCYTES % (AUTO) 16.5 % (2.0-9.0); NEUTROPHILS # (AUTO) 3.7 K/uL (1.8-7.7); NEUTROPHILS % (AUTO) 62.6 % (40.0-70.0); PLATELET COUNT (AUTO) 53 K/uL (150-450); RED BLOOD CELL COUNT(AUTO) 2.65 MIL/uL (4.00-5.20); RED CELL DISTRIBUTION WIDTH 22.3 % (11.5-14.5)
[2018-05-09 07:09] LABS: CALCIUM, TOTAL 7.9 mg/dL (8.8-10.5); CREATININE 2.93 mg/dL (0.60-1.30)
[2018-05-09 08:02] VITALS: BP 137/45
[2018-05-09 08:09] LABS: GLUCOMETER DEV NAME(LOC) 5S.1; GLUCOSE,POINT OF CARE 75 MG/DL (70-110)
[2018-05-09] MEDS: PANTOPRAZOLE SODIUM 40 MG DR TABLET PO SCH (09:09)
[2018-05-09] MEDS: DOCUSATE SODIUM 100 MG CAPSULE PO SCH ×2 (09:09→21:25)
[2018-05-09] MEDS: ROSUVASTATIN CALCIUM 10 MG TABLET PO SCH (09:09)
[2018-05-09] MEDS: CARVEDILOL 6.25 MG TABLET PO SCH ×2 (09:09→21:25)
[2018-05-09] MEDS: ASPIRIN 81 MG CHEWABLE TABLET PO SCH (09:10)
[2018-05-09 11:34] VITALS: BP 142/49
[2018-05-09 13:04] LABS: GLUCOMETER DEV NAME(LOC) 5S.2; GLUCOSE,POINT OF CARE 128 MG/DL (70-110)
[2018-05-09 16:15] VITALS: BP 157/65
[2018-05-09 20:33] VITALS: BP 150/58
[2018-05-09] MEDS: AmLODIPine BESYLATE 10 MG TABLET PO SCH (21:25)
[2018-05-09] MEDS: SOD FERRIC GLUC COMPLX/SUCROSE 125 MG in SODIUM CHLORIDE 0.9% 100 ML IV SCH (21:26)
[2018-05-09] MEDS ORDERED: SODIUM CHLORIDE 0.9% 100 ML ONE (21:29)
[2018-05-10 00:01] VITALS: BP 129/56
[2018-05-10 02:37] LABS: GLUCOMETER DEV NAME(LOC) 5S.2; GLUCOSE,POINT OF CARE 152 MG/DL (70-110)
[2018-05-10 02:37] LABS: GLUCOMETER DEV NAME(LOC) 5S.1; GLUCOSE,POINT OF CARE 96 MG/DL (70-110)
[2018-05-10 04:56] VITALS: BP 114/48
[2018-05-10 08:09] LABS: GLUCOMETER DEV NAME(LOC) 5S.2; GLUCOSE,POINT OF CARE 71 MG/DL (70-110)
[2018-05-10 08:22] VITALS: BP 137/52
[2018-05-10] MEDS: ROSUVASTATIN CALCIUM 10 MG TABLET PO SCH (08:56)
[2018-05-10] MEDS: DOCUSATE SODIUM 100 MG CAPSULE PO SCH (08:56)
[2018-05-10] MEDS: PANTOPRAZOLE SODIUM 40 MG DR TABLET PO SCH (08:57)
[2018-05-10] MEDS: CARVEDILOL 6.25 MG TABLET PO SCH (08:57)
[2018-05-10] MEDS: ASPIRIN 81 MG CHEWABLE TABLET PO SCH (08:57)
[2018-05-10] MEDS: EPOETIN ALFA 10,000 UNITS/ML VIAL SQ SCH (08:57)
[2018-05-10] MEDS ORDERED: SODIUM CHLORIDE 0.9% 2,000 ML IV ONE ×2 (11:26→13:20)
[2018-05-10 11:52] VITALS: BP 144/59
[2018-05-10 13:39] LABS: GLUCOMETER DEV NAME(LOC) 5S.1; GLUCOSE,POINT OF CARE 95 MG/DL (70-110)
[2018-05-10] MEDS ORDERED: AMLO10TA55 PO (16:25)
[2018-05-10] MEDS ORDERED: ASPI81TA39 PO (16:25)
[2018-05-10] MEDS ORDERED: DSSL PO (16:26)
[2018-05-10] MEDS ORDERED: PANT20TA12 PO (16:26)
[2018-05-10] MEDS ORDERED: ROSU10TA27 PO (16:27)
[2018-05-10] MEDS ORDERED: CARV3.1231 PO (16:28)
[2018-05-10] MEDS ORDERED: HEPARIN SODIUM,PORCINE 1,000 UNITS/ML VIAL IVP ONE (17:29)
== END 2018-05-10 17:30 | disposition home or self-care (01) | DRG 264 ==
LOC: EMS 17:23 → 5S 20:53 → UNDOADMIN 20:53
PROVIDERS: ADMIT Internal Medicine; ATTEND Internal Medicine
PROC: 30233N1 Transfusion of Nonautologous Red Blood Cells into Peripheral Vein, Percutaneous Approach (ICD-10-PCS; 2018-04-28)
PROC: 0JH63XZ Insertion of Tunneled Vascular Access Device into Chest Subcutaneous Tissue and Fascia, Percutaneous Approach (ICD-10-PCS; 2018-05-01)
PROC: 02HV33Z Insertion of Infusion Device into Superior Vena Cava, Percutaneous Approach (ICD-10-PCS; 2018-05-01)
PROC: B5181ZA Fluoroscopy of Superior Vena Cava using Low Osmolar Contrast, Guidance (ICD-10-PCS; 2018-05-01)
PROC: B548ZZA Ultrasonography of Superior Vena Cava, Guidance (ICD-10-PCS; 2018-05-01)
PROC: 5A1D70Z Performance of Urinary Filtration, Intermittent, Less than 6 Hours Per Day (ICD-10-PCS; 2018-05-02)
PROC: 5A1D70Z Performance of Urinary Filtration, Intermittent, Less than 6 Hours Per Day (ICD-10-PCS; 2018-05-04)
PROC: 5A1D70Z Performance of Urinary Filtration, Intermittent, Less than 6 Hours Per Day (ICD-10-PCS; 2018-05-05)
PROC: 03180ZD Bypass Left Brachial Artery to Upper Arm Vein, Open Approach (ICD-10-PCS; principal; 2018-05-05 07:30)
PROC: 5A1D70Z Performance of Urinary Filtration, Intermittent, Less than 6 Hours Per Day (ICD-10-PCS; 2018-05-08)
DX: I13.2 Hypertensive heart and chronic kidney disease with heart failure and with stage 5 chronic kidney disease, or end stage renal disease (principal); N18.6 End stage renal disease; D63.1 Anemia in chronic kidney disease; E87.5 Hyperkalemia; D69.6 Thrombocytopenia, unspecified; E11.22 Type 2 diabetes mellitus with diabetic chronic kidney disease; E78.00 Pure hypercholesterolemia, unspecified; E78.5 Hyperlipidemia, unspecified; I50.9 Heart failure, unspecified; E87.6 Hypokalemia; E80.6 Other disorders of bilirubin metabolism; E87.70 Fluid overload, unspecified; I25.10 Atherosclerotic heart disease of native coronary artery without angina pectoris; I25.5 Ischemic cardiomyopathy; K74.60 Unspecified cirrhosis of liver; Z79.82 Long term (current) use of aspirin; Z95.1 Presence of aortocoronary bypass graft; Z28.21 Immunization not carried out because of patient refusal; Z79.899 Other long term (current) drug therapy; Z90.49 Acquired absence of other specified parts of digestive tract
CPT/HCPCS: 36245; 36561; 76000; 76700; 76937; 80074; 82248; 82728; 83010; 83540; 83550; 83615; 83735; 84100; 85045; 85379; 85384; 86850; 86880; 86900; 86901; 86920; 87040; 87340; 93005; 93306; 93970; 96374; 96375; G0378; J0690; J0885; J1644; J1940; J2250; J2310; J2405; J2704; J2916; J3010; J3490; J7030; J7040; J7050; P9016

== ENCOUNTER 2018-11-08 07:28 | Inpatient (IN) | payer MEDICARE, MEDICAID ==
[~2018-11-08] VITALS: Ht 152.4 cm; Wt 49.1 kg
[~2018-11-08 07:28] MED LIST: AMLO10TA55 PO; ASPI81TA39 PO; CARV3.1231 PO; DSSL PO; GLIP5 PO; PANT20TA12 PO; ROSU10TA27 PO
[2018-11-08] MEDS ORDERED: SEVEC800 PO (07:47)
[2018-11-08] MEDS ORDERED: ATOR20TA86 PO (07:47)
[2018-11-08] MEDS ORDERED: FURO40 PO (07:47)
[2018-11-08] MEDS ORDERED: HYDR-2924 PO (07:47)
[2018-11-08] MEDS ORDERED: DIPH25 PO (07:47)
[2018-11-08] MEDS ORDERED: LISI-662 PO (07:47)
[2018-11-08] MEDS ORDERED: FOLI0.8T2 PO (07:47)
[2018-11-08 07:55] LABS: GLUCOSE,POINT OF CARE 72 MG/DL (70-110)
[2018-11-08 08:27] LABS: BASOPHILS % (AUTO) 1.1 % (0.0-2.0); HEMATOCRIT 37.6 % (36-46); HEMOGLOBIN 11.9 g/dL (12.0-16.0); LYMPHOCYTES # (AUTO) 0.7 K/uL (1.0-4.8); LYMPHOCYTES % (AUTO) 10.4 % (22.0-44.0); MEAN CORPUSCULAR HEMOGLOBIN 26.9 pg (26.0-34.0); MEAN CORPUSCULAR HGB CONC 31.6 G/dL (31.0-37.0); MEAN CORPUSCULAR VOLUME 85 fL (80-100); MONOCYTES # (AUTO) 0.7 K/uL (0.1-1.0); NEUTROPHILS % (AUTO) 73.5 % (40.0-70.0); RED BLOOD CELL COUNT(AUTO) 4.41 MIL/uL (4.00-5.20); RED CELL DISTRIBUTION WIDTH 16.8 % (11.5-14.5)
[2018-11-08 08:42] LABS: CREATININE 2.72 mg/dL (0.60-1.30); POTASSIUM 3.6 mmol/L (3.5-5.1)
[2018-11-08 08:43] LABS: INR 1.1 (0.9-1.1); PROTHROMBIN TIME 11.2 SEC (9.4-11.6)
[2018-11-08 08:49] LABS: ALBUMIN 3.2 g/dL (3.4-5.0); TOTAL PROTEIN, SERUM 7.1 g/dL (6.4-8.2)
[2018-11-08] MEDS ORDERED: ASPIRIN 81 MG CHEWABLE TABLET PO ONE (09:00)
[2018-11-08] MEDS ORDERED: NITROGLYCERIN 2% (1 GM=INCH) PACKET TP ONE (09:15)
[2018-11-08 09:24] LABS: PLATELET COUNT (AUTO) 41 K/uL (150-450)
[2018-11-08] MEDS ORDERED: INSULIN LISPRO 100 UNITS/ML SQ PRN (10:15)
[2018-11-08] MEDS ORDERED: ALBUTEROL SULFATE 2.5 MG/0.5 ML NEB SOLUTION NEB PRN (10:15)
[2018-11-08] MEDS ORDERED: MAGNESIUM HYDROXIDE SUSPENSION 30 ML UDCUP PO PRN (10:15)
[2018-11-08] MEDS ORDERED: ONDANSETRON HCL 4 MG/2 ML VIAL IVP PRN (10:15)
[2018-11-08] MEDS ORDERED: ACETAMINOPHEN 325 MG TABLET PO PRN ×2 (10:15)
[2018-11-08] MEDS ORDERED: IPRATROPIUM BROMIDE 0.5 MG/2.5 ML NEB SOLUTION NEB PRN (10:15)
[2018-11-08] MEDS ORDERED: 0.9% SODIUM CHLORIDE 10 ML SYRINGE IVP PRN ×2 (10:15)
[2018-11-08] MEDS ORDERED: DEXTROSE 50%-WATER 25 GM/50 ML SYRINGE IVP PRN (10:15)
[2018-11-08] MEDS ORDERED: BISACODYL 10 MG RECTAL RECTAL SUPPOSITORY PR PRN (10:15)
[2018-11-08] MEDS ORDERED: TraMADol HCL 50 MG TABLET PO PRN (10:30)
[2018-11-08 11:43] VITALS: BP 156/58
[2018-11-08] MEDS: SEVELAMER CARBONATE 800 MG TABLET PO SCH ×2 (12:00→18:14)
[2018-11-08 14:56] VITALS: BP 151/52
[2018-11-08] MEDS ORDERED: PNEUMOCOCCAL VACCINE POLYVALENT 0.5 ML VIAL [PPSV23] IM ONE (16:45)
[2018-11-08] MEDS: VITAMIN B COMP/VIT C/FOLIC ACID CAPSULE PO SCH (18:14)
[2018-11-08 19:29] VITALS: BP 154/64
[2018-11-08 19:54] LABS: GLUCOMETER DEV NAME(LOC) 5N.1; GLUCOSE,POINT OF CARE 84 MG/DL (70-110)
[2018-11-08] MEDS ORDERED: HEPARIN SODIUM,PORCINE 5,000 UNITS/ML VIAL SQ SCH (21:00)
[2018-11-08 23:41] VITALS: BP 149/61
[2018-11-09 01:09] LABS: GLUCOMETER DEV NAME(LOC) 5N.2; GLUCOSE,POINT OF CARE 135 MG/DL (70-110)
[2018-11-09] MEDS: HydrALAZINE HCL 50 MG TABLET PO SCH ×2 (02:55→08:33)
[2018-11-09] MEDS: CARVEDILOL 3.125 MG TABLET PO SCH ×2 (02:56→08:34)
[2018-11-09] MEDS: DOCUSATE SODIUM 100 MG CAPSULE PO SCH ×2 (02:56→08:33)
[2018-11-09 04:21] VITALS: BP 125/80
[2018-11-09 06:58] LABS: BASOPHILS % (AUTO) 1.8 % (0.0-2.0); EOSINOPHILS % (AUTO) 11.3 % (1.0-6.0); HEMATOCRIT 34.2 % (36-46); HEMOGLOBIN 10.9 g/dL (12.0-16.0); LYMPHOCYTES % (AUTO) 22.7 % (22.0-44.0); MEAN CORPUSCULAR HEMOGLOBIN 27.3 pg (26.0-34.0); MEAN CORPUSCULAR VOLUME 85 fL (80-100); MONOCYTES # (AUTO) 0.7 K/uL (0.1-1.0); MONOCYTES % (AUTO) 16.3 % (2.0-9.0); NEUTROPHILS # (AUTO) 2.2 K/uL (1.8-7.7); NEUTROPHILS % (AUTO) 47.9 % (40.0-70.0); PLATELET COUNT (AUTO) 53 K/uL (150-450); RED BLOOD CELL COUNT(AUTO) 4.01 MIL/uL (4.00-5.20); RED CELL DISTRIBUTION WIDTH 17.1 % (11.5-14.5)
[2018-11-09 07:07] LABS: BILIRUBIN,TOTAL 1.4 mg/dL (0.1-1.0); CALCIUM, TOTAL 8.9 mg/dL (8.8-10.5); CHOL/HDL RATIO 2.1 (3.9-5.7); CREATININE 4.2 mg/dL (0.60-1.30); FREE T4 (FREE THYROXINE) 1.31 ng/dL (0.76-1.46); PHOSPHORUS 4.9 mg/dL (2.5-4.9); POTASSIUM 4.7 mmol/L (3.5-5.1); THYROID STIMULATING HORMONE 1.01 uIU/mL (0.36-3.74); TOTAL PROTEIN, SERUM 6.4 g/dL (6.4-8.2)
[2018-11-09 07:15] LABS: GLUCOMETER DEV NAME(LOC) 5N.1; GLUCOSE,POINT OF CARE 80 MG/DL (70-110)
[2018-11-09 08:07] VITALS: BP 159/64
[2018-11-09] MEDS: VITAMIN B COMP/VIT C/FOLIC ACID CAPSULE PO SCH (08:33)
[2018-11-09] MEDS: SEVELAMER CARBONATE 800 MG TABLET PO SCH ×2 (08:34→12:22)
[2018-11-09 08:57] LABS: PLATELET MORPHOLOGY COMMENT GIANT PLTS PRESENT
[2018-11-09] MEDS ORDERED: AmLODIPine BESYLATE 10 MG TABLET PO SCH (09:00)
[2018-11-09] MEDS ORDERED: ASPIRIN 81 MG CHEWABLE TABLET PO SCH (09:00)
[2018-11-09] MEDS ORDERED: PANTOPRAZOLE SODIUM 40 MG DR TABLET PO SCH (09:00)
[2018-11-09] MEDS ORDERED: ATORVASTATIN CALCIUM 20 MG TABLET PO SCH (09:00)
[2018-11-09] MEDS ORDERED: IPRATROPIUM BROMIDE 0.5 MG/2.5 ML NEB SOLUTION NEB PRN (09:15)
[2018-11-09] MEDS ORDERED: TraMADol HCL 50 MG TABLET PO PRN (09:15)
[2018-11-09 11:09] VITALS: BP 144/58
[2018-11-09 11:41] LABS: GLUCOMETER DEV NAME(LOC) 5N.1; GLUCOSE,POINT OF CARE 108 MG/DL (70-110)
[2018-11-09] MEDS ORDERED: CARV3 PO (14:03)
[2018-11-09 15:24] VITALS: BP 130/51
== END 2018-11-09 17:30 | disposition home or self-care (01) | DRG 302 ==
LOC: EMS 07:29 → 5S 10:39 → UNDOADMIN 11:20
PROVIDERS: ADMIT Internal Medicine; ATTEND Internal Medicine
PROC: 5A12012 Performance of Cardiac Output, Single, Manual (ICD-10-PCS; principal; 2018-11-08)
PROC: 3E0234Z Introduction of Serum, Toxoid and Vaccine into Muscle, Percutaneous Approach (ICD-10-PCS; 2018-11-08)
DX: I25.110 Atherosclerotic heart disease of native coronary artery with unstable angina pectoris (principal); N18.6 End stage renal disease; E44.1 Mild protein-calorie malnutrition; I12.0 Hypertensive chronic kidney disease with stage 5 chronic kidney disease or end stage renal disease; I42.9 Cardiomyopathy, unspecified; R55 Syncope and collapse; E78.5 Hyperlipidemia, unspecified; K21.9 Gastro-esophageal reflux disease without esophagitis; E11.22 Type 2 diabetes mellitus with diabetic chronic kidney disease; D63.8 Anemia in other chronic diseases classified elsewhere; E78.00 Pure hypercholesterolemia, unspecified; I95.9 Hypotension, unspecified; Z68.21 Body mass index [BMI] 21.0-21.9, adult; Z79.84 Long term (current) use of oral hypoglycemic drugs; Z79.899 Other long term (current) drug therapy; Z90.49 Acquired absence of other specified parts of digestive tract; Z95.1 Presence of aortocoronary bypass graft; Z99.2 Dependence on renal dialysis; Z23 Encounter for immunization
CPT/HCPCS: 83735; 84100; 84439; 84443; 87081; 90732; 93005; 93306; 97116; 97162

== ENCOUNTER 2019-04-25 07:39 | Inpatient (IN) | payer MEDICARE, MEDICAID ==
[~2019-04-25] VITALS: Ht 157.5 cm; Wt 51.5 kg
[~2019-04-25 07:39] MED LIST changes: -ASPI81TA39 PO; +ATOR20TA86 PO; +CARV3 PO; -CARV3.1231 PO; +DIPH25 PO; -DSSL PO; +FOLI0.8T2 PO; +FURO40 PO; +HYDR-2924 PO; +LISI-662 PO; +SEVE800T17 PO
[2019-04-25 09:16] LABS: CALCIUM, TOTAL 8.6 mg/dL (8.8-10.5); CREATININE 4.34 mg/dL (0.60-1.30); POTASSIUM 4.4 mmol/L (3.5-5.1)
[2019-04-25 09:22] LABS: ALBUMIN 3.2 g/dL (3.4-5.0); BILIRUBIN,TOTAL 1.8 mg/dL (0.1-1.0); TOTAL PROTEIN, SERUM 6.8 g/dL (6.4-8.2)
[2019-04-25 09:28] LABS: BASOPHILS % (AUTO) 1.4 % (0.0-2.0); EOSINOPHILS % (AUTO) 2.7 % (1.0-6.0); HEMATOCRIT 33.6 % (36-46); HEMOGLOBIN 10.8 g/dL (12.0-16.0); LYMPHOCYTES # (AUTO) 0.7 K/uL (1.0-4.8); LYMPHOCYTES % (AUTO) 9.9 % (22.0-44.0); MEAN CORPUSCULAR HEMOGLOBIN 27.7 pg (26.0-34.0); MEAN CORPUSCULAR HGB CONC 32.2 G/dL (31.0-37.0); MEAN CORPUSCULAR VOLUME 86 fL (80-100); MONOCYTES # (AUTO) 1.2 K/uL (0.1-1.0); MONOCYTES % (AUTO) 16.3 % (2.0-9.0); NEUTROPHILS # (AUTO) 5.1 K/uL (1.8-7.7); NEUTROPHILS % (AUTO) 69.7 % (40.0-70.0); RED CELL DISTRIBUTION WIDTH 17.4 % (11.5-14.5)
[2019-04-25 10:06] LABS: PLATELET COUNT (AUTO) 40 K/uL (150-450)
[2019-04-25] MEDS ORDERED: 0.9% SODIUM CHLORIDE 10 ML SYRINGE IVP PRN (15:00)
[2019-04-25] MEDS ORDERED: ACETAMINOPHEN 325 MG TABLET PO PRN ×2 (15:00→20:00)
[2019-04-25] MEDS ORDERED: ONDANSETRON HCL 4 MG/2 ML VIAL IVP PRN ×2 (15:00→20:00)
[2019-04-25 19:02] VITALS: BP 188/75
[2019-04-25] MEDS ORDERED: IPRATROPIUM BROMIDE 0.5 MG/2.5 ML NEB SOLUTION NEB PRN (20:00)
[2019-04-25] MEDS ORDERED: MAGNESIUM HYDROXIDE SUSPENSION 30 ML UDCUP PO PRN (20:00)
[2019-04-25] MEDS ORDERED: HYDROCODONE/ACETAMINOPHEN 5-325 MG TABLET PO PRN (20:00)
[2019-04-25] MEDS ORDERED: MORPHINE SULFATE 2 MG/ML SYRINGE IVP PRN (20:00)
[2019-04-25] MEDS ORDERED: ZOLPIDEM TARTRATE 10 MG TABLET PO PRN (20:00)
[2019-04-25 20:38] LABS: CALCIUM, TOTAL 8.6 mg/dL (8.8-10.5); CREATININE 4.95 mg/dL (0.60-1.30); POTASSIUM 4.3 mmol/L (3.5-5.1)
[2019-04-25 20:44] LABS: ALBUMIN 3.1 g/dL (3.4-5.0); BILIRUBIN,TOTAL 1.2 mg/dL (0.1-1.0)
[2019-04-25 20:59] VITALS: BP 154/82
[2019-04-25] MEDS: DOCUSATE SODIUM 100 MG CAPSULE PO SCH (21:00)
[2019-04-25] MEDS: HydrALAZINE HCL 50 MG TABLET PO SCH (21:00)
[2019-04-25] MEDS: PANTOPRAZOLE SODIUM 80 MG in SODIUM CHLORIDE 0.9% 100 ML IV SCH (21:09)
[2019-04-25] MEDS ORDERED: OCTREOTIDE ACETATE 500 MCG in DEXTROSE 5%-WATER 97.5 ML IV SCH (21:15)
[2019-04-25] MEDS ORDERED: HydrALAZINE HCL 20 MG/ML VIAL IVP PRN (21:15)
[2019-04-25 21:49] LABS: HEMATOCRIT 33.2 % (36-46); HEMOGLOBIN 10.7 g/dL (12.0-16.0)
[2019-04-25 22:03] LABS: INR 1.2 (0.9-1.1); PROTHROMBIN TIME 12.6 SEC (9.4-11.6)
[2019-04-26 00:01] VITALS: BP 168/62
[2019-04-26 04:49] VITALS: BP 176/64
[2019-04-26] MEDS ORDERED: PEG 3350/NA SULF,BICARB,CL/KCL 4000 ML SOLUTION PO ONE (05:15)
[2019-04-26] MEDS: NITROGLYCERIN 2% (1 GM=INCH) PACKET TP SCH ×4 (06:09→18:28)
[2019-04-26] MEDS: PANTOPRAZOLE SODIUM 80 MG in SODIUM CHLORIDE 0.9% 100 ML IV SCH ×2 (06:44→18:10)
[2019-04-26 06:48] VITALS: BP 174/63
[2019-04-26 07:02] LABS: BASOPHILS % (AUTO) 2.2 % (0.0-2.0); EOSINOPHILS % (AUTO) 11.2 % (1.0-6.0); HEMATOCRIT 31.6 % (36-46); HEMOGLOBIN 10.3 g/dL (12.0-16.0); LYMPHOCYTES # (AUTO) 0.8 K/uL (1.0-4.8); LYMPHOCYTES % (AUTO) 17.7 % (22.0-44.0); MEAN CORPUSCULAR HEMOGLOBIN 28.1 pg (26.0-34.0); MEAN CORPUSCULAR HGB CONC 32.7 G/dL (31.0-37.0); MEAN CORPUSCULAR VOLUME 86 fL (80-100); MONOCYTES # (AUTO) 0.6 K/uL (0.1-1.0); MONOCYTES % (AUTO) 13.8 % (2.0-9.0); NEUTROPHILS # (AUTO) 2.5 K/uL (1.8-7.7); NEUTROPHILS % (AUTO) 55.1 % (40.0-70.0); PLATELET COUNT (AUTO) 50 K/uL (150-450); RED BLOOD CELL COUNT(AUTO) 3.67 MIL/uL (4.00-5.20); RED CELL DISTRIBUTION WIDTH 17.5 % (11.5-14.5)
[2019-04-26] MEDS: SEVELAMER CARBONATE 800 MG TABLET PO SCH ×5 (08:00→18:00)
[2019-04-26 08:30] VITALS: BP 145/55
[2019-04-26] MEDS ORDERED: ASPIRIN 81 MG CHEWABLE TABLET PO SCH (09:00)
[2019-04-26] MEDS ORDERED: ATORVASTATIN CALCIUM 20 MG TABLET PO SCH (09:00)
[2019-04-26] MEDS: DOCUSATE SODIUM 100 MG CAPSULE PO SCH ×2 (09:00→21:00)
[2019-04-26] MEDS: LISINOPRIL 20 MG TABLET PO SCH (09:57)
[2019-04-26] MEDS: FUROSEMIDE 40 MG TABLET PO SCH (09:57)
[2019-04-26] MEDS: ATORVASTATIN CALCIUM 40 MG TABLET PO SCH (09:57)
[2019-04-26] MEDS: HydrALAZINE HCL 50 MG TABLET PO SCH ×2 (09:58→21:00)
[2019-04-26 12:24] LABS: HEMATOCRIT 31.5 % (36-46); HEMOGLOBIN 10.2 g/dL (12.0-16.0)
[2019-04-26 20:15] LABS: HEMATOCRIT 32.2 % (36-46); HEMOGLOBIN 10.4 g/dL (12.0-16.0)
[2019-04-26 22:22] LABS: GLUCOMETER DEV NAME(LOC) 5S.1; GLUCOSE,POINT OF CARE 113 MG/DL (70-110)
[2019-04-27] MEDS: NITROGLYCERIN 2% (1 GM=INCH) PACKET TP SCH ×5 (00:13→23:32)
[2019-04-27] MEDS: PANTOPRAZOLE SODIUM 80 MG in SODIUM CHLORIDE 0.9% 100 ML IV SCH ×3 (02:36→23:24)
[2019-04-27 05:35] VITALS: BP 139/62
[2019-04-27 07:41] LABS: BASOPHILS % (AUTO) 1.6 % (0.0-2.0); HEMATOCRIT 29.6 % (36-46); HEMOGLOBIN 9.7 g/dL (12.0-16.0); LYMPHOCYTES # (AUTO) 0.7 K/uL (1.0-4.8); LYMPHOCYTES % (AUTO) 15.6 % (22.0-44.0); MEAN CORPUSCULAR HEMOGLOBIN 28.2 pg (26.0-34.0); MEAN CORPUSCULAR VOLUME 86 fL (80-100); MONOCYTES # (AUTO) 0.7 K/uL (0.1-1.0); MONOCYTES % (AUTO) 14.3 % (2.0-9.0); NEUTROPHILS # (AUTO) 2.7 K/uL (1.8-7.7); NEUTROPHILS % (AUTO) 57.5 % (40.0-70.0); PLATELET COUNT (AUTO) 43 K/uL (150-450); RED BLOOD CELL COUNT(AUTO) 3.46 MIL/uL (4.00-5.20); RED CELL DISTRIBUTION WIDTH 17.1 % (11.5-14.5)
[2019-04-27 08:10] LABS: CALCIUM, TOTAL 8.4 mg/dL (8.8-10.5); CREATININE 3.1 mg/dL (0.60-1.30); MAGNESIUM 1.7 mg/dL (1.80-2.40); PHOSPHORUS 3.3 mg/dL (2.5-4.9); POTASSIUM 3.7 mmol/L (3.5-5.1)
[2019-04-27 08:38] VITALS: BP 143/70
[2019-04-27] MEDS: ATORVASTATIN CALCIUM 40 MG TABLET PO SCH (08:43)
[2019-04-27] MEDS: HydrALAZINE HCL 50 MG TABLET PO SCH ×2 (08:43→20:46)
[2019-04-27] MEDS: FUROSEMIDE 40 MG TABLET PO SCH (08:43)
[2019-04-27] MEDS: LISINOPRIL 20 MG TABLET PO SCH (08:43)
[2019-04-27] MEDS: DOCUSATE SODIUM 100 MG CAPSULE PO SCH ×2 (08:53→20:45)
[2019-04-27 12:00] VITALS: BP 154/62
[2019-04-27] MEDS ORDERED: SODIUM CHLORIDE 0.9% 100 ML ONE (15:30)
[2019-04-27] MEDS ORDERED: IOVERSOL 320 MG/ML 100 ML VIAL ONE (15:30)
[2019-04-27 16:03] VITALS: BP 140/69
[2019-04-27 20:45] VITALS: BP 161/73
[2019-04-28] VITALS (8 sets, daily range): BP systolic 152–197; BP diastolic 61–75
[2019-04-28] MEDS: NITROGLYCERIN 2% (1 GM=INCH) PACKET TP SCH ×4 (06:07→23:19)
[2019-04-28 07:17] LABS: BASOPHILS % (AUTO) 2.6 % (0.0-2.0); EOSINOPHILS % (AUTO) 10.3 % (1.0-6.0); HEMATOCRIT 30.8 % (36-46); LYMPHOCYTES # (AUTO) 0.8 K/uL (1.0-4.8); LYMPHOCYTES % (AUTO) 16.4 % (22.0-44.0); MEAN CORPUSCULAR HEMOGLOBIN 27.8 pg (26.0-34.0); MEAN CORPUSCULAR HGB CONC 32.4 G/dL (31.0-37.0); MEAN CORPUSCULAR VOLUME 86 fL (80-100); MONOCYTES # (AUTO) 0.7 K/uL (0.1-1.0); MONOCYTES % (AUTO) 15.4 % (2.0-9.0); NEUTROPHILS # (AUTO) 2.6 K/uL (1.8-7.7); NEUTROPHILS % (AUTO) 55.3 % (40.0-70.0); PLATELET COUNT (AUTO) 58 K/uL (150-450); RED BLOOD CELL COUNT(AUTO) 3.59 MIL/uL (4.00-5.20); RED CELL DISTRIBUTION WIDTH 16.9 % (11.5-14.5)
[2019-04-28 07:38] LABS: CALCIUM, TOTAL 8.6 mg/dL (8.8-10.5); CREATININE 4.16 mg/dL (0.60-1.30); MAGNESIUM 1.8 mg/dL (1.80-2.40); PHOSPHORUS 4.6 mg/dL (2.5-4.9); POTASSIUM 4.3 mmol/L (3.5-5.1)
[2019-04-28 07:43] LABS: % IRON SATURATION 45.1 % (22-44)
[2019-04-28] MEDS: PANTOPRAZOLE SODIUM 80 MG in SODIUM CHLORIDE 0.9% 100 ML IV SCH ×2 (08:41→20:01)
[2019-04-28] MEDS: ATORVASTATIN CALCIUM 40 MG TABLET PO SCH (08:42)
[2019-04-28] MEDS: LISINOPRIL 20 MG TABLET PO SCH (08:42)
[2019-04-28] MEDS: HydrALAZINE HCL 50 MG TABLET PO SCH ×2 (08:42→22:14)
[2019-04-28] MEDS: FUROSEMIDE 40 MG TABLET PO SCH (08:42)
[2019-04-28] MEDS: EPOETIN ALFA 10,000 UNITS/ML VIAL SQ SCH (08:43)
[2019-04-28] MEDS: DOCUSATE SODIUM 100 MG CAPSULE PO SCH ×2 (09:00→22:14)
[2019-04-28] MEDS ORDERED: LIDOCAINE/PF 1% 2 ML VIAL IM ONE (16:29)
[2019-04-29 04:57] VITALS: BP 154/61
[2019-04-29] MEDS: NITROGLYCERIN 2% (1 GM=INCH) PACKET TP SCH ×3 (05:20→18:00)
[2019-04-29] MEDS: PANTOPRAZOLE SODIUM 80 MG in SODIUM CHLORIDE 0.9% 100 ML IV SCH ×2 (05:21→13:22)
[2019-04-29 07:00] LABS: BASOPHILS % (AUTO) 1.2 % (0.0-2.0); HEMATOCRIT 30.3 % (36-46); HEMOGLOBIN 9.8 g/dL (12.0-16.0); LYMPHOCYTES # (AUTO) 0.7 K/uL (1.0-4.8); LYMPHOCYTES % (AUTO) 14.2 % (22.0-44.0); MEAN CORPUSCULAR HEMOGLOBIN 27.9 pg (26.0-34.0); MEAN CORPUSCULAR HGB CONC 32.3 G/dL (31.0-37.0); MEAN CORPUSCULAR VOLUME 86 fL (80-100); MONOCYTES # (AUTO) 0.7 K/uL (0.1-1.0); MONOCYTES % (AUTO) 12.9 % (2.0-9.0); NEUTROPHILS # (AUTO) 3.2 K/uL (1.8-7.7); NEUTROPHILS % (AUTO) 60.7 % (40.0-70.0); PLATELET COUNT (AUTO) 49 K/uL (150-450); RED BLOOD CELL COUNT(AUTO) 3.51 MIL/uL (4.00-5.20)
[2019-04-29 07:51] VITALS: BP_SYST 107; BP_SYST 167; BP_DIAS 52; BP_DIAS 64
[2019-04-29] MEDS ORDERED: METOPROLOL SUCCINATE 50 MG ER TABLET PO ONE (09:00)
[2019-04-29] MEDS: LISINOPRIL 20 MG TABLET PO SCH (09:17)
[2019-04-29] MEDS: ATORVASTATIN CALCIUM 40 MG TABLET PO SCH (09:17)
[2019-04-29] MEDS: DOCUSATE SODIUM 100 MG CAPSULE PO SCH ×2 (09:17→20:38)
[2019-04-29] MEDS: HydrALAZINE HCL 50 MG TABLET PO SCH ×2 (09:18→20:38)
[2019-04-29] MEDS: FUROSEMIDE 40 MG TABLET PO SCH (09:18)
[2019-04-29 12:45] VITALS: BP 150/55
[2019-04-29] MEDS ORDERED: LIDOCAINE/PF 1% 2 ML VIAL IM ONE (16:31)
[2019-04-29 17:55] VITALS: BP 176/75
[2019-04-29] MEDS ORDERED: METOPROLOL SUCCINATE 25 MG ER TABLET PO ONE (21:00)
[2019-04-29 21:59] VITALS: BP 154/66
[2019-04-30] VITALS (7 sets, daily range): BP systolic 145–171; BP diastolic 56–70
[2019-04-30] MEDS: NITROGLYCERIN 2% (1 GM=INCH) PACKET TP SCH ×5 (00:02→23:35)
[2019-04-30] MEDS: PANTOPRAZOLE SODIUM 80 MG in SODIUM CHLORIDE 0.9% 100 ML IV SCH ×3 (00:03→22:30)
[2019-04-30 07:08] LABS: BASOPHILS % (AUTO) 1.6 % (0.0-2.0); EOSINOPHILS % (AUTO) 11.3 % (1.0-6.0); HEMOGLOBIN 10.1 g/dL (12.0-16.0); LYMPHOCYTES # (AUTO) 0.7 K/uL (1.0-4.8); LYMPHOCYTES % (AUTO) 14.2 % (22.0-44.0); MEAN CORPUSCULAR HEMOGLOBIN 27.8 pg (26.0-34.0); MEAN CORPUSCULAR HGB CONC 32.5 G/dL (31.0-37.0); MEAN CORPUSCULAR VOLUME 86 fL (80-100); MONOCYTES # (AUTO) 0.9 K/uL (0.1-1.0); MONOCYTES % (AUTO) 17.6 % (2.0-9.0); NEUTROPHILS # (AUTO) 2.9 K/uL (1.8-7.7); NEUTROPHILS % (AUTO) 55.3 % (40.0-70.0); PLATELET COUNT (AUTO) 57 K/uL (150-450); RED BLOOD CELL COUNT(AUTO) 3.62 MIL/uL (4.00-5.20); RED CELL DISTRIBUTION WIDTH 16.9 % (11.5-14.5)
[2019-04-30] MEDS: DOCUSATE SODIUM 100 MG CAPSULE PO SCH ×2 (09:13→21:00)
[2019-04-30] MEDS: FUROSEMIDE 40 MG TABLET PO SCH (09:13)
[2019-04-30] MEDS: ATORVASTATIN CALCIUM 40 MG TABLET PO SCH (09:13)
[2019-04-30] MEDS: LISINOPRIL 20 MG TABLET PO SCH (09:13)
[2019-04-30] MEDS: HydrALAZINE HCL 50 MG TABLET PO SCH ×2 (09:16→22:30)
[2019-04-30] MEDS ORDERED: IOVERSOL 350 MG/ML 100 ML VIAL ONE (13:15)
[2019-04-30] MEDS ORDERED: SODIUM CHLORIDE 0.9% 100 ML ONE (13:15)
[2019-04-30] MEDS ORDERED: NITROGLYCERIN 400 MCG/SUBLINGUAL SPRAY 4.9 GM BOTTLE SL ONE ×2 (13:17→14:14)
[2019-04-30] MEDS ORDERED: METOPROLOL TARTRATE 5 MG/5 ML VIAL ONE (13:17)
[2019-04-30] MEDS ORDERED: METOPROLOL TARTRATE 5 MG/5 ML VIAL IVP ONE ×3 (13:39→13:47)
[2019-04-30] MEDS ORDERED: LIDOCAINE/PF 1% 2 ML VIAL IM ONE (17:31)
[2019-05-01 04:53] VITALS: BP 155/59
[2019-05-01] MEDS: NITROGLYCERIN 2% (1 GM=INCH) PACKET TP SCH ×3 (06:00→19:22)
[2019-05-01 07:05] LABS: BASOPHILS % (AUTO) 1.4 % (0.0-2.0); EOSINOPHILS % (AUTO) 9.9 % (1.0-6.0); HEMATOCRIT 32.1 % (36-46); HEMOGLOBIN 10.4 g/dL (12.0-16.0); LYMPHOCYTES # (AUTO) 0.9 K/uL (1.0-4.8); LYMPHOCYTES % (AUTO) 15.9 % (22.0-44.0); MEAN CORPUSCULAR HEMOGLOBIN 27.7 pg (26.0-34.0); MEAN CORPUSCULAR HGB CONC 32.3 G/dL (31.0-37.0); MEAN CORPUSCULAR VOLUME 86 fL (80-100); MONOCYTES # (AUTO) 0.8 K/uL (0.1-1.0); MONOCYTES % (AUTO) 14.6 % (2.0-9.0); NEUTROPHILS # (AUTO) 3.3 K/uL (1.8-7.7); NEUTROPHILS % (AUTO) 58.2 % (40.0-70.0); PLATELET COUNT (AUTO) 51 K/uL (150-450); RED BLOOD CELL COUNT(AUTO) 3.75 MIL/uL (4.00-5.20); RED CELL DISTRIBUTION WIDTH 16.8 % (11.5-14.5)
[2019-05-01 07:43] VITALS: BP 162/72
[2019-05-01] MEDS: LISINOPRIL 20 MG TABLET PO SCH (09:14)
[2019-05-01] MEDS: FUROSEMIDE 40 MG TABLET PO SCH (09:14)
[2019-05-01] MEDS: ATORVASTATIN CALCIUM 40 MG TABLET PO SCH (09:14)
[2019-05-01] MEDS: DOCUSATE SODIUM 100 MG CAPSULE PO SCH ×2 (09:14→21:20)
[2019-05-01] MEDS: PANTOPRAZOLE SODIUM 80 MG in SODIUM CHLORIDE 0.9% 100 ML IV SCH ×2 (09:15→19:20)
[2019-05-01] MEDS: EPOETIN ALFA 10,000 UNITS/ML VIAL SQ SCH (09:20)
[2019-05-01] MEDS: HydrALAZINE HCL 50 MG TABLET PO SCH (09:24)
[2019-05-01 11:31] VITALS: BP 157/59
[2019-05-01 15:50] VITALS: BP 175/65
[2019-05-01 17:10] LABS: INR 1.3 (0.9-1.1); PROTHROMBIN TIME 12.7 SEC (9.4-11.6)
[2019-05-01 19:49] VITALS: BP 158/59
[2019-05-01] MEDS ORDERED: HydrALAZINE HCL 50 MG TABLET PO SCH (21:00)
[2019-05-01] MEDS: HydrALAZINE HCL 25 MG TABLET PO SCH (21:20)
[2019-05-01 23:29] VITALS: BP 149/64
[2019-05-02] MEDS: NITROGLYCERIN 2% (1 GM=INCH) PACKET TP SCH ×4 (00:20→18:19)
[2019-05-02] MEDS: PANTOPRAZOLE SODIUM 80 MG in SODIUM CHLORIDE 0.9% 100 ML IV SCH ×3 (03:08→22:41)
[2019-05-02 04:50] VITALS: BP 158/67
[2019-05-02] MEDS ORDERED: SODIUM CHLORIDE 0.9% 1,000 ML IV ONE (05:30)
[2019-05-02] MEDS ORDERED: PHENYLEPHRINE 200 MG/D5%-WATER 250 ML IV PRN (06:34)
[2019-05-02 06:39] LABS: BASOPHILS % (AUTO) 1.6 % (0.0-2.0); EOSINOPHILS % (AUTO) 10.1 % (1.0-6.0); HEMATOCRIT 33.2 % (36-46); HEMOGLOBIN 10.7 g/dL (12.0-16.0); LYMPHOCYTES # (AUTO) 1.2 K/uL (1.0-4.8); LYMPHOCYTES % (AUTO) 21.9 % (22.0-44.0); MEAN CORPUSCULAR HEMOGLOBIN 27.4 pg (26.0-34.0); MEAN CORPUSCULAR HGB CONC 32.1 G/dL (31.0-37.0); MEAN CORPUSCULAR VOLUME 86 fL (80-100); MONOCYTES # (AUTO) 0.7 K/uL (0.1-1.0); MONOCYTES % (AUTO) 13.5 % (2.0-9.0); NEUTROPHILS # (AUTO) 2.9 K/uL (1.8-7.7); NEUTROPHILS % (AUTO) 52.9 % (40.0-70.0); PLATELET COUNT (AUTO) 74 K/uL (150-450); RED BLOOD CELL COUNT(AUTO) 3.88 MIL/uL (4.00-5.20); RED CELL DISTRIBUTION WIDTH 17.2 % (11.5-14.5)
[2019-05-02] MEDS ORDERED: HEPARIN SODIUM,PORCINE 5,000 UNITS/ML VIAL ONE (06:44)
[2019-05-02] MEDS ORDERED: NITROPRUSSIDE SODIUM 50 MG in DEXTROSE 5%-WATER 248 ML IV PRN (06:45)
[2019-05-02] MEDS ORDERED: SODIUM CHLORIDE 0.9% 10 ML ONE (06:45)
[2019-05-02] MEDS ORDERED: SODIUM CHLORIDE 0.9% 500 ML IV ONE (06:45)
[2019-05-02] MEDS ORDERED: THROMBIN, BOVINE 20000 UNITS/VIAL POWDER TP ONE (06:46)
[2019-05-02] MEDS ORDERED: GELATIN SPONGE,ABSORBABLE 100 MM TP ONE (06:46)
[2019-05-02 06:53] LABS: INR 1.2 (0.9-1.1); PROTHROMBIN TIME 12.4 SEC (9.4-11.6)
[2019-05-02 06:55] LABS: CALCIUM, TOTAL 8.9 mg/dL (8.8-10.5); CREATININE 4.81 mg/dL (0.60-1.30); POTASSIUM 3.9 mmol/L (3.5-5.1)
[2019-05-02 07:00] LABS: ALBUMIN 3.1 g/dL (3.4-5.0); BILIRUBIN,TOTAL 1.1 mg/dL (0.1-1.0)
[2019-05-02] MEDS ORDERED: GELATIN SPONGE,ABSORBABLE 12-7 MM TP ONE (07:02)
[2019-05-02] MEDS ORDERED: BUPIVACAINE HCL 0.5% 50 ML VIAL ONE (08:08)
[2019-05-02] MEDS ORDERED: SODIUM CHLORIDE 0.9% 1,000 ML ONE (08:18)
[2019-05-02] MEDS: LISINOPRIL 20 MG TABLET PO SCH (09:00)
[2019-05-02] MEDS: HydrALAZINE HCL 25 MG TABLET PO SCH ×2 (09:00→22:40)
[2019-05-02] MEDS: ATORVASTATIN CALCIUM 40 MG TABLET PO SCH (09:00)
[2019-05-02] MEDS: FUROSEMIDE 40 MG TABLET PO SCH (09:00)
[2019-05-02] MEDS: DOCUSATE SODIUM 100 MG CAPSULE PO SCH ×2 (09:00→21:58)
[2019-05-02] MEDS ORDERED: SUGAMMADEX SODIUM 200 MG/2 ML VIAL IVP ONE ×2 (09:49→10:20)
[2019-05-02] MEDS ORDERED: NiCARDipine HCL 25 MG in DEXTROSE 5%-WATER 240 ML IV PRN (10:15)
[2019-05-02 11:30] VITALS: BP 135/33
[2019-05-02 12:00] VITALS: BP 129/28
[2019-05-02] MEDS ORDERED: LIDOCAINE 1% 10 ML VIAL INJ ONE (12:00)
[2019-05-02] MEDS ORDERED: DEXAMETHASONE SOD PHOS 4 MG/ML VIAL IVP ONE (12:00)
[2019-05-02] MEDS ORDERED: LIDOCAINE/PF 1% 2 ML VIAL INJ ONE (12:00)
[2019-05-02] MEDS ORDERED: ONDANSETRON HCL 4 MG/2 ML VIAL IVP ONE (12:00)
[2019-05-02] MEDS ORDERED: FentaNYL CITRATE-PF 100 MCG/2 ML VIAL IVP ONE (12:00)
[2019-05-02] MEDS ORDERED: HEPARIN SODIUM,PORCINE 1,000 UNITS/ML 10 ML VIAL IVP ONE (12:00)
[2019-05-02] MEDS ORDERED: PROPOFOL 1% 20 ML VIAL IVP ONE (12:00)
[2019-05-02 13:44] LABS: INR 1.3 (0.9-1.1); PROTHROMBIN TIME 12.8 SEC (9.4-11.6)
[2019-05-02 16:00] VITALS: BP 135/34
[2019-05-02 20:00] VITALS: BP 137/30
[2019-05-03] VITALS (7 sets, daily range): BP systolic 137–150; BP diastolic 32–48
[2019-05-03] MEDS: NITROGLYCERIN 2% (1 GM=INCH) PACKET TP SCH ×4 (00:10→18:00)
[2019-05-03] MEDS ORDERED: SODIUM CHLORIDE 0.9% 250 ML IV ONE (04:42)
[2019-05-03] MEDS: ATORVASTATIN CALCIUM 40 MG TABLET PO SCH (08:52)
[2019-05-03] MEDS: DOCUSATE SODIUM 100 MG CAPSULE PO SCH ×2 (08:52→21:17)
[2019-05-03] MEDS: EPOETIN ALFA 10,000 UNITS/ML VIAL SQ SCH (08:52)
[2019-05-03] MEDS: PANTOPRAZOLE SODIUM 80 MG in SODIUM CHLORIDE 0.9% 100 ML IV SCH ×2 (08:52→21:16)
[2019-05-03] MEDS: LISINOPRIL 20 MG TABLET PO SCH (08:52)
[2019-05-03] MEDS: FUROSEMIDE 40 MG TABLET PO SCH (08:52)
[2019-05-03] MEDS: HydrALAZINE HCL 25 MG TABLET PO SCH ×2 (08:54→21:17)
[2019-05-04] MEDS: NITROGLYCERIN 2% (1 GM=INCH) PACKET TP SCH ×3 (00:07→12:00)
[2019-05-04 00:28] VITALS: BP 129/47
[2019-05-04 04:00] VITALS: BP 119/40
[2019-05-04 08:14] VITALS: BP 151/47
[2019-05-04 09:09] LABS: CALCIUM, TOTAL 8.5 mg/dL (8.8-10.5); CREATININE 4.87 mg/dL (0.60-1.30); MAGNESIUM 1.7 mg/dL (1.80-2.40); POTASSIUM 4.4 mmol/L (3.5-5.1)
[2019-05-04] MEDS ORDERED: LIDOCAINE/PF 1% 2 ML VIAL INJ ONE (12:00)
[2019-05-04] MEDS: DOCUSATE SODIUM 100 MG CAPSULE PO SCH (12:45)
[2019-05-04] MEDS: HydrALAZINE HCL 25 MG TABLET PO SCH (12:46)
[2019-05-04] MEDS: FUROSEMIDE 40 MG TABLET PO SCH (12:46)
[2019-05-04] MEDS: PANTOPRAZOLE SODIUM 80 MG in SODIUM CHLORIDE 0.9% 100 ML IV SCH (12:46)
[2019-05-04] MEDS: ATORVASTATIN CALCIUM 40 MG TABLET PO SCH (12:46)
[2019-05-04] MEDS: LISINOPRIL 20 MG TABLET PO SCH (12:46)
[2019-05-04] MEDS ORDERED: DOCU-275 PO (15:08)
[2019-05-04] MEDS ORDERED: NTP TP (15:11)
[2019-05-04] MEDS ORDERED: EPOE10003 SQ (15:11)
[2019-05-04] MEDS ORDERED: ACET-2247 PO (15:12)
[2019-05-04] MEDS ORDERED: HYDR-4061 PO (15:13)
[2019-05-04] MEDS ORDERED: IPRNEB IH (15:13)
[2019-05-04] MEDS ORDERED: MOM30 PO (15:14)
[2019-05-04] MEDS ORDERED: MORP2SYR IVP (15:15)
[2019-05-04] MEDS ORDERED: ONDA220I IV (15:16)
[2019-05-04] MEDS ORDERED: ZOLP10TA7 PO (15:17)
[2019-05-04] MEDS ORDERED: PANT40TA25 PO (15:17)
== END 2019-05-04 16:05 | DRG 37 ==
LOC: EMS 07:42 → 5S 16:47 → ICU 05-02 11:30 → 5N 05-03 16:35
PROVIDERS: ADMIT Hospitalist; ATTEND Hospitalist
PROC: 5A1D70Z Performance of Urinary Filtration, Intermittent, Less than 6 Hours Per Day (ICD-10-PCS; 2019-04-26)
PROC: 05HY33Z Insertion of Infusion Device into Upper Vein, Percutaneous Approach (ICD-10-PCS; 2019-04-26)
PROC: B54MZZA Ultrasonography of Right Upper Extremity Veins, Guidance (ICD-10-PCS; 2019-04-26)
PROC: 5A1D70Z Performance of Urinary Filtration, Intermittent, Less than 6 Hours Per Day (ICD-10-PCS; 2019-04-28)
PROC: 5A1D70Z Performance of Urinary Filtration, Intermittent, Less than 6 Hours Per Day (ICD-10-PCS; 2019-04-30)
PROC: 037K0ZZ Dilation of Right Internal Carotid Artery, Open Approach (ICD-10-PCS; 2019-05-02)
PROC: 03CH0ZZ Extirpation of Matter from Right Common Carotid Artery, Open Approach (ICD-10-PCS; 2019-05-02)
PROC: 5A1D70Z Performance of Urinary Filtration, Intermittent, Less than 6 Hours Per Day (ICD-10-PCS; 2019-05-02)
PROC: 03CK0ZZ Extirpation of Matter from Right Internal Carotid Artery, Open Approach (ICD-10-PCS; principal; 2019-05-02 07:30)
PROC: 5A1D70Z Performance of Urinary Filtration, Intermittent, Less than 6 Hours Per Day (ICD-10-PCS; 2019-05-04)
DX: I65.21 Occlusion and stenosis of right carotid artery (principal); N18.6 End stage renal disease; K85.90 Acute pancreatitis without necrosis or infection, unspecified; K92.2 Gastrointestinal hemorrhage, unspecified; I13.2 Hypertensive heart and chronic kidney disease with heart failure and with stage 5 chronic kidney disease, or end stage renal disease; I50.30 Unspecified diastolic (congestive) heart failure; I42.9 Cardiomyopathy, unspecified; R07.9 Chest pain, unspecified; K74.60 Unspecified cirrhosis of liver; D69.6 Thrombocytopenia, unspecified; D64.9 Anemia, unspecified; E11.22 Type 2 diabetes mellitus with diabetic chronic kidney disease; I25.10 Atherosclerotic heart disease of native coronary artery without angina pectoris; E78.5 Hyperlipidemia, unspecified; E78.00 Pure hypercholesterolemia, unspecified; R55 Syncope and collapse; Z90.49 Acquired absence of other specified parts of digestive tract; Z99.2 Dependence on renal dialysis; Z95.1 Presence of aortocoronary bypass graft; Z79.899 Other long term (current) drug therapy; Z87.891 Personal history of nicotine dependence
CPT/HCPCS: 36245; 36569; 70450; 70498; 75574; 76937; 83540; 83550; 83735; 84100; 85014; 85018; 86850; 86870; 86900; 86901; 86905; 86922; 87081; 87340; 88304; 88311; 93005; 93306; 93880; 97162; 97166; 97530; 97535; C9113; G0378; J0360; J0690; J0885; J1100; J1644; J2354; J2370; J2405; J2704; J3010; J3490; J7030; J7040; J7050; J7060

== ENCOUNTER 2019-05-04 16:15 | Inpatient (IN) | payer MEDICARE, MEDICAID ==
[~2019-05-04] VITALS: Ht 152.4 cm; Wt 47.0 kg
[~2019-05-04 16:15] MED LIST changes: +ACET-2247 PO; -AMLO10TA55 PO; -CARV3 PO; -DIPH25 PO; +DOCU-275 PO; +EPOE10003 SQ; -GLIP5 PO; +HYDR-4061 PO; +IPRNEB IH; +MOM30 PO; +MORP2SYR IVP; +NTP TP; +ONDA220I IV; -PANT20TA12 PO; +PANT40TA25 PO; -ROSU10TA27 PO; -SEVE800T17 PO; +ZOLP10TA7 PO
[2019-05-04 16:30] VITALS: BP 123/43
[2019-05-04] MEDS ORDERED: ACETAMINOPHEN 325 MG TABLET PO PRN (18:30)
[2019-05-04] MEDS ORDERED: HYDROCODONE/ACETAMINOPHEN 5-325 MG TABLET PO PRN (18:30)
[2019-05-04] MEDS ORDERED: ONDANSETRON HCL 4 MG TABLET PO PRN (18:30)
[2019-05-04] MEDS ORDERED: IPRATROPIUM BROMIDE 0.5 MG/2.5 ML NEB SOLUTION NEB PRN (18:30)
[2019-05-04] MEDS ORDERED: MAGNESIUM HYDROXIDE SUSPENSION 30 ML UDCUP PO PRN (18:30)
[2019-05-04] MEDS ORDERED: MELATONIN 3 MG TABLET PO PRN (19:00)
[2019-05-04] MEDS: SENNA 187 MG TABLET PO SCH (19:48)
[2019-05-04] MEDS: DOCUSATE SODIUM 100 MG CAPSULE PO SCH (19:48)
[2019-05-04] MEDS: OXYGEN THERAPY IH SCH (19:49)
[2019-05-04] MEDS: ACETAMINOPHEN 325 MG TABLET PO PRN (19:49)
[2019-05-04] MEDS: NITROGLYCERIN 2% (1 GM=INCH) PACKET TP SCH (20:32)
[2019-05-04] MEDS ORDERED: DOCUSATE SODIUM 100 MG/10 ML LIQUID UDCUP PO SCH (21:00)
[2019-05-04] MEDS ORDERED: HydrALAZINE HCL 50 MG TABLET PO SCH (21:00)
[2019-05-05] VITALS (9 sets, daily range): BP systolic 123–145; BP diastolic 46–61
[2019-05-05] MEDS: NITROGLYCERIN 2% (1 GM=INCH) PACKET TP SCH ×5 (00:40→23:05)
[2019-05-05] MEDS: DOCUSATE SODIUM 100 MG CAPSULE PO SCH ×2 (08:43→20:58)
[2019-05-05] MEDS: LISINOPRIL 20 MG TABLET PO SCH (08:44)
[2019-05-05] MEDS: PANTOPRAZOLE SODIUM 40 MG DR TABLET PO SCH ×2 (08:44→20:59)
[2019-05-05] MEDS: HydrALAZINE HCL 25 MG TABLET PO SCH ×2 (08:44→20:56)
[2019-05-05] MEDS: ATORVASTATIN CALCIUM 40 MG TABLET PO SCH (08:44)
[2019-05-05] MEDS: FUROSEMIDE 40 MG TABLET PO SCH (08:44)
[2019-05-05] MEDS: ACETAMINOPHEN 325 MG TABLET PO PRN ×2 (08:52→09:01)
[2019-05-05] MEDS: EPOETIN ALFA 10,000 UNITS/ML VIAL SQ SCH ×2 (08:52→09:00)
[2019-05-05] MEDS: 0.9% SODIUM CHLORIDE 10 ML SYRINGE IVP SCH ×3 (08:55→23:05)
[2019-05-05] MEDS: OXYGEN THERAPY IH SCH ×2 (08:55→20:00)
[2019-05-05 10:45] LABS: HEMATOCRIT 29.3 % (36-46); HEMOGLOBIN 9.5 g/dL (12.0-16.0); MEAN CORPUSCULAR HEMOGLOBIN 27.8 pg (26.0-34.0); MEAN CORPUSCULAR HGB CONC 32.5 G/dL (31.0-37.0); MEAN CORPUSCULAR VOLUME 85 fL (80-100); PLATELET COUNT (AUTO) 56 K/uL (150-450); RED BLOOD CELL COUNT(AUTO) 3.43 MIL/uL (4.00-5.20); RED CELL DISTRIBUTION WIDTH 17.5 % (11.5-14.5)
[2019-05-05 10:59] LABS: ALBUMIN 2.8 g/dL (3.4-5.0); CALCIUM, TOTAL 8.1 mg/dL (8.8-10.5); CREATININE 3.82 mg/dL (0.60-1.30); POTASSIUM 3.4 mmol/L (3.5-5.1); TOTAL PROTEIN, SERUM 6.3 g/dL (6.4-8.2)
[2019-05-05 11:30] LABS: BAND NEUTROPHILS % (MANUAL) 3 % (0-5); EOSINOPHILS % (MANUAL) 6 % (1-6); LYMPHOCYTES % (MANUAL) 11 % (22-44); MONOCYTES % (MANUAL) 9 % (2-9); SEGMENTED NEUTROPHILS % 71 % (40-70)
[2019-05-05] MEDS ORDERED: POTASSIUM CHLORIDE 10 MEQ ER TABLET PO ONE ×2 (13:00→22:00)
[2019-05-05 19:41] LABS: CALCIUM, TOTAL 8.2 mg/dL (8.8-10.5); CREATININE 4.2 mg/dL (0.60-1.30); POTASSIUM 3.9 mmol/L (3.5-5.1)
[2019-05-05] MEDS: SENNA 187 MG TABLET PO SCH (20:58)
[2019-05-06] VITALS (7 sets, daily range): BP systolic 106–146; BP diastolic 41–59
[2019-05-06] MEDS: NITROGLYCERIN 2% (1 GM=INCH) PACKET TP SCH ×4 (05:50→23:08)
[2019-05-06 06:20] LABS: GLUCOMETER DEV NAME(LOC) 2WR.2; GLUCOSE,POINT OF CARE 70 MG/DL (70-110)
[2019-05-06] MEDS ORDERED: SODIUM CHLORIDE 0.9% 2,000 ML ONE (07:30)
[2019-05-06 07:57] LABS: CALCIUM, TOTAL 8.4 mg/dL (8.8-10.5); CREATININE 4.77 mg/dL (0.60-1.30)
[2019-05-06] MEDS: OXYGEN THERAPY IH SCH ×2 (08:00→19:50)
[2019-05-06] MEDS: 0.9% SODIUM CHLORIDE 10 ML SYRINGE IVP SCH ×3 (08:19→23:08)
[2019-05-06] MEDS: PANTOPRAZOLE SODIUM 40 MG DR TABLET PO SCH ×2 (09:00→19:37)
[2019-05-06] MEDS: HydrALAZINE HCL 25 MG TABLET PO SCH ×2 (09:00→19:40)
[2019-05-06] MEDS: LISINOPRIL 20 MG TABLET PO SCH (09:00)
[2019-05-06] MEDS: FUROSEMIDE 40 MG TABLET PO SCH (09:00)
[2019-05-06] MEDS: DOCUSATE SODIUM 100 MG CAPSULE PO SCH ×2 (09:00→19:37)
[2019-05-06] MEDS: ATORVASTATIN CALCIUM 40 MG TABLET PO SCH (12:28)
[2019-05-06] MEDS: ACETAMINOPHEN 325 MG TABLET PO PRN (15:43)
[2019-05-06] MEDS: BENZONATATE 100 MG CAPSULE PO PRN ×2 (15:43→23:35)
[2019-05-06] MEDS: SENNA 187 MG TABLET PO SCH (19:49)
[2019-05-07] MEDS: ACETAMINOPHEN 325 MG TABLET PO PRN (03:55)
[2019-05-07] MEDS: NITROGLYCERIN 2% (1 GM=INCH) PACKET TP SCH ×4 (05:55→23:02)
[2019-05-07 06:00] VITALS: BP 106/54
[2019-05-07 06:48] LABS: HEMATOCRIT 29.7 % (36-46); HEMOGLOBIN 9.8 g/dL (12.0-16.0); MEAN CORPUSCULAR HEMOGLOBIN 28.3 pg (26.0-34.0); MEAN CORPUSCULAR HGB CONC 33.2 G/dL (31.0-37.0); MEAN CORPUSCULAR VOLUME 85 fL (80-100); PLATELET COUNT (AUTO) 62 K/uL (150-450); RED BLOOD CELL COUNT(AUTO) 3.48 MIL/uL (4.00-5.20); RED CELL DISTRIBUTION WIDTH 17.3 % (11.5-14.5)
[2019-05-07 07:45] VITALS: BP 139/47
[2019-05-07 09:04] LABS: BAND NEUTROPHILS % (MANUAL) 4 % (0-5); EOSINOPHILS % (MANUAL) 8 % (1-6); LYMPHOCYTES % (MANUAL) 13 % (22-44); MONOCYTES % (MANUAL) 10 % (2-9); SEGMENTED NEUTROPHILS % 65 % (40-70)
[2019-05-07] MEDS: ATORVASTATIN CALCIUM 40 MG TABLET PO SCH (09:14)
[2019-05-07] MEDS: HydrALAZINE HCL 25 MG TABLET PO SCH ×2 (09:14→22:06)
[2019-05-07] MEDS: 0.9% SODIUM CHLORIDE 10 ML SYRINGE IVP SCH ×3 (09:14→23:02)
[2019-05-07] MEDS: FUROSEMIDE 40 MG TABLET PO SCH (09:16)
[2019-05-07] MEDS: LISINOPRIL 20 MG TABLET PO SCH (09:16)
[2019-05-07] MEDS: DOCUSATE SODIUM 100 MG CAPSULE PO SCH ×2 (09:16→22:05)
[2019-05-07] MEDS: PANTOPRAZOLE SODIUM 40 MG DR TABLET PO SCH ×2 (09:16→22:05)
[2019-05-07] MEDS: OXYGEN THERAPY IH SCH ×2 (09:17→17:59)
[2019-05-07 16:49] VITALS: BP 151/52
[2019-05-07 18:03] VITALS: BP 137/41
[2019-05-07] MEDS: SENNA 187 MG TABLET PO SCH (22:05)
[2019-05-07 22:06] VITALS: BP 133/43
[2019-05-07 23:00] VITALS: BP 135/48
[2019-05-08 04:22] LABS: GLUCOMETER DEV NAME(LOC) 2WR.1C; GLUCOSE,POINT OF CARE 92 MG/DL (70-110)
[2019-05-08] MEDS: NITROGLYCERIN 2% (1 GM=INCH) PACKET TP SCH ×3 (05:56→18:46)
[2019-05-08 06:00] VITALS: BP 148/52
[2019-05-08 06:30] LABS: GLUCOMETER DEV NAME(LOC) 2WR.1C; GLUCOSE,POINT OF CARE 78 MG/DL (70-110)
[2019-05-08 07:31] VITALS: BP 147/47
[2019-05-08] MEDS: OXYGEN THERAPY IH SCH ×2 (08:00→20:00)
[2019-05-08] MEDS: FUROSEMIDE 40 MG TABLET PO SCH (09:00)
[2019-05-08] MEDS: ATORVASTATIN CALCIUM 40 MG TABLET PO SCH ×2 (09:00→09:13)
[2019-05-08] MEDS: HydrALAZINE HCL 25 MG TABLET PO SCH ×2 (09:00→21:38)
[2019-05-08] MEDS: LISINOPRIL 20 MG TABLET PO SCH (09:00)
[2019-05-08] MEDS: DOCUSATE SODIUM 100 MG CAPSULE PO SCH ×2 (09:14→21:00)
[2019-05-08] MEDS: PANTOPRAZOLE SODIUM 40 MG DR TABLET PO SCH ×2 (09:14→21:39)
[2019-05-08] MEDS: EPOETIN ALFA 10,000 UNITS/ML VIAL SQ SCH (09:15)
[2019-05-08] MEDS: 0.9% SODIUM CHLORIDE 10 ML SYRINGE IVP SCH ×2 (09:21→16:29)
[2019-05-08] MEDS ORDERED: LIDOCAINE/PF 1% 2 ML VIAL INJ ONE (12:00)
[2019-05-08] MEDS ORDERED: SODIUM CHLORIDE 0.9% 2,000 ML ONE (14:00)
[2019-05-08 15:45] VITALS: BP 149/58
[2019-05-08 17:38] VITALS: BP 179/62
[2019-05-08] MEDS: SENNA 187 MG TABLET PO SCH (21:00)
[2019-05-08 21:20] VITALS: BP 165/59
[2019-05-08 21:36] VITALS: BP 150/70
[2019-05-09] VITALS: BP 130/43
[2019-05-09] MEDS: 0.9% SODIUM CHLORIDE 10 ML SYRINGE IVP SCH ×4 (00:20→23:36)
[2019-05-09 06:00] VITALS: BP 126/48
[2019-05-09 06:42] LABS: GLUCOMETER DEV NAME(LOC) 2WR.2; GLUCOSE,POINT OF CARE 81 MG/DL (70-110)
[2019-05-09] MEDS: NITROGLYCERIN 2% (1 GM=INCH) PACKET TP SCH ×5 (06:48→23:36)
[2019-05-09 07:45] VITALS: BP 138/45
[2019-05-09] MEDS: LISINOPRIL 20 MG TABLET PO SCH (07:57)
[2019-05-09] MEDS: ATORVASTATIN CALCIUM 40 MG TABLET PO SCH (07:57)
[2019-05-09] MEDS: DOCUSATE SODIUM 100 MG CAPSULE PO SCH ×2 (07:57→20:05)
[2019-05-09] MEDS: FUROSEMIDE 40 MG TABLET PO SCH (07:57)
[2019-05-09] MEDS: HydrALAZINE HCL 25 MG TABLET PO SCH ×2 (07:57→20:10)
[2019-05-09] MEDS: PANTOPRAZOLE SODIUM 40 MG DR TABLET PO SCH ×3 (07:57→20:05)
[2019-05-09] MEDS: OXYGEN THERAPY IH SCH ×2 (08:00→20:00)
[2019-05-09] MEDS: ACETAMINOPHEN 325 MG TABLET PO PRN ×2 (08:31→15:18)
[2019-05-09 13:16] VITALS: BP 126/40
[2019-05-09 15:18] VITALS: BP 149/63
[2019-05-09] MEDS: SENNA 187 MG TABLET PO SCH (20:06)
[2019-05-09 23:30] VITALS: BP 122/53
[2019-05-10] MEDS: NITROGLYCERIN 2% (1 GM=INCH) PACKET TP SCH ×2 (05:26→13:16)
[2019-05-10 05:30] VITALS: BP 146/67
[2019-05-10 05:45] LABS: GLUCOMETER DEV NAME(LOC) 2WR.1C; GLUCOSE,POINT OF CARE 87 MG/DL (70-110)
[2019-05-10 07:26] VITALS: BP 138/52
[2019-05-10] MEDS: OXYGEN THERAPY IH SCH (08:00)
[2019-05-10] MEDS: HydrALAZINE HCL 25 MG TABLET PO SCH (08:45)
[2019-05-10] MEDS: PANTOPRAZOLE SODIUM 40 MG DR TABLET PO SCH (08:45)
[2019-05-10] MEDS: ATORVASTATIN CALCIUM 40 MG TABLET PO SCH (08:45)
[2019-05-10] MEDS: 0.9% SODIUM CHLORIDE 10 ML SYRINGE IVP SCH (08:45)
[2019-05-10] MEDS: DOCUSATE SODIUM 100 MG CAPSULE PO SCH (08:46)
[2019-05-10] MEDS: LISINOPRIL 20 MG TABLET PO SCH (08:46)
[2019-05-10] MEDS: FUROSEMIDE 40 MG TABLET PO SCH (08:46)
[2019-05-10] MEDS: ACETAMINOPHEN 325 MG TABLET PO PRN (08:48)
[2019-05-10] MEDS: EPOETIN ALFA 10,000 UNITS/ML VIAL SQ SCH (08:52)
[2019-05-10 15:00] VITALS: BP 138/53
== END 2019-05-10 16:40 | disposition home or self-care (01) | DRG 947 ==
LOC: 2WR 16:15
PROVIDERS: ATTEND Physical Medicine & Rehabilitation
PROC: 5A1D70Z Performance of Urinary Filtration, Intermittent, Less than 6 Hours Per Day (ICD-10-PCS; principal; 2019-05-06)
PROC: 5A1D70Z Performance of Urinary Filtration, Intermittent, Less than 6 Hours Per Day (ICD-10-PCS; 2019-05-08)
DX: R53.81 Other malaise (principal); N18.6 End stage renal disease; I13.2 Hypertensive heart and chronic kidney disease with heart failure and with stage 5 chronic kidney disease, or end stage renal disease; K92.2 Gastrointestinal hemorrhage, unspecified; I42.9 Cardiomyopathy, unspecified; E11.22 Type 2 diabetes mellitus with diabetic chronic kidney disease; I50.9 Heart failure, unspecified; I25.10 Atherosclerotic heart disease of native coronary artery without angina pectoris; I65.21 Occlusion and stenosis of right carotid artery; E78.5 Hyperlipidemia, unspecified; K74.60 Unspecified cirrhosis of liver; D63.8 Anemia in other chronic diseases classified elsewhere; D69.6 Thrombocytopenia, unspecified; E87.6 Hypokalemia; K59.00 Constipation, unspecified; R55 Syncope and collapse; Z79.899 Other long term (current) drug therapy; Z99.2 Dependence on renal dialysis; Z95.1 Presence of aortocoronary bypass graft; Z90.49 Acquired absence of other specified parts of digestive tract
CPT/HCPCS: 83036; 87081; 87340; 93970; 97110; 97116; 97162; 97166; 97530; 97535; 99366; J0885; J3490; J7030

== ENCOUNTER 2019-06-05 19:26 | Emergency (ER) | payer MEDICARE, MEDICAID ==
[~2019-06-05] VITALS: Ht 154.9 cm; Wt 50.0 kg
[~2019-06-05 19:26] MED LIST changes: -ACET-2247 PO; -EPOE10003 SQ; -FOLI0.8T2 PO; -HYDR-4061 PO; -IPRNEB IH; -MOM30 PO; -MORP2SYR IVP; -ONDA220I IV; -ZOLP10TA7 PO
[2019-06-05 21:21] LABS: BASOPHILS % (AUTO) 1.6 % (0.0-2.0); EOSINOPHILS % (AUTO) 10.8 % (1.0-6.0); HEMATOCRIT 28.2 % (36-46); HEMOGLOBIN 9.3 g/dL (12.0-16.0); LYMPHOCYTES % (AUTO) 20.3 % (22.0-44.0); MEAN CORPUSCULAR HEMOGLOBIN 27.7 pg (26.0-34.0); MEAN CORPUSCULAR HGB CONC 33.1 G/dL (31.0-37.0); MEAN CORPUSCULAR VOLUME 84 fL (80-100); MONOCYTES # (AUTO) 0.8 K/uL (0.1-1.0); MONOCYTES % (AUTO) 16.4 % (2.0-9.0); NEUTROPHILS # (AUTO) 2.5 K/uL (1.8-7.7); NEUTROPHILS % (AUTO) 50.9 % (40.0-70.0); RED BLOOD CELL COUNT(AUTO) 3.36 MIL/uL (4.00-5.20); RED CELL DISTRIBUTION WIDTH 16.7 % (11.5-14.5)
[2019-06-05 21:23] LABS: CALCIUM, TOTAL 9.4 mg/dL (8.8-10.5); CREATININE 4.85 mg/dL (0.60-1.30); POTASSIUM 4.7 mmol/L (3.5-5.1)
[2019-06-05 21:26] LABS: INR 1.2 (0.9-1.1); PROTHROMBIN TIME 11.9 SEC (9.4-11.6)
[2019-06-05 21:30] LABS: ALBUMIN 3.5 g/dL (3.4-5.0); TOTAL PROTEIN, SERUM 8.2 g/dL (6.4-8.2)
[2019-06-05 21:51] LABS: PLATELET COUNT (AUTO) 70 K/uL (150-450)
[2019-06-05 22:41] VITALS: BP 154/59
== END 2019-06-05 22:42 | disposition home or self-care (01) ==
LOC: EMS 19:26
DX: N99.821 Postprocedural hemorrhage of a genitourinary system organ or structure following other procedure (principal); E78.00 Pure hypercholesterolemia, unspecified; I10 Essential (primary) hypertension; Z90.49 Acquired absence of other specified parts of digestive tract; Z79.899 Other long term (current) drug therapy

== ENCOUNTER 2019-11-01 12:00 | Inpatient (IN) | payer MEDICARE, MEDICAID ==
[~2019-11-01] VITALS: Ht 154.9 cm; Wt 48.0 kg
[~2019-11-01 12:00] MED LIST changes: +PANT-31 PO; -PANT40TA25 PO
[2019-11-01] MEDS ORDERED: FOLI1CAP24 PO (12:18)
[2019-11-01] MEDS ORDERED: CARV12 PO (12:18)
[2019-11-01 14:38] LABS: HEMOGLOBIN 8.7 g/dL (12.0-16.0); MEAN CORPUSCULAR HGB CONC 32.2 G/dL (31.0-37.0); MEAN CORPUSCULAR VOLUME 87 fL (80-100); RED BLOOD CELL COUNT(AUTO) 3.11 MIL/uL (4.00-5.20)
[2019-11-01 14:48] LABS: CREATININE 4.97 mg/dL (0.60-1.30); POTASSIUM 3.6 mmol/L (3.5-5.1)
[2019-11-01 14:52] LABS: INR 1.2 (0.9-1.1); PROTHROMBIN TIME 12.8 SEC (9.4-11.6)
[2019-11-01 14:55] LABS: ALBUMIN 3.1 g/dL (3.4-5.0); TOTAL PROTEIN, SERUM 7.5 g/dL (6.4-8.2)
[2019-11-01 14:57] LABS: PLATELET COUNT (AUTO) 57 K/uL (150-450)
[2019-11-01 14:59] LABS: BAND NEUTROPHILS % (MANUAL) 4 % (0-5); LYMPHOCYTES % (MANUAL) 24 % (22-44); MONOCYTES % (MANUAL) 2 % (2-9); SEGMENTED NEUTROPHILS % 70 % (40-70)
[2019-11-01] MEDS ORDERED: LISI-661 PO (15:22)
[2019-11-01] MEDS ORDERED: ATOR40TA28 PO (15:22)
[2019-11-01] MEDS ORDERED: ACETAMINOPHEN 325 MG TABLET PO PRN (15:30)
[2019-11-01] MEDS ORDERED: 0.9% SODIUM CHLORIDE 10 ML SYRINGE IVP PRN (15:30)
[2019-11-01] MEDS ORDERED: ONDANSETRON HCL 4 MG/2 ML VIAL IVP PRN ×2 (15:30→21:15)
[2019-11-01 17:02] VITALS: BP 141/52
[2019-11-01] MEDS: VITAMIN B COMP/VIT C/FOLIC ACID CAPSULE PO SCH (18:10)
[2019-11-01] MEDS: NITROGLYCERIN 2% (1 GM=INCH) PACKET TP SCH (18:39)
[2019-11-01 20:00] VITALS: BP 128/52
[2019-11-01] MEDS: CARVEDILOL 12.5 MG TABLET PO SCH (20:28)
[2019-11-01] MEDS: DOCUSATE SODIUM 100 MG CAPSULE PO SCH (20:29)
[2019-11-01] MEDS ORDERED: HydrALAZINE HCL 50 MG TABLET PO SCH (21:00)
[2019-11-01] MEDS ORDERED: MAGNESIUM HYDROXIDE SUSPENSION 30 ML UDCUP PO PRN (21:15)
[2019-11-01] MEDS ORDERED: ALBUTEROL SULFATE 2.5 MG/0.5 ML NEB SOLUTION NEB PRN (21:15)
[2019-11-01] MEDS ORDERED: HYDROCODONE/ACETAMINOPHEN 5-325 MG TABLET PO PRN (21:15)
[2019-11-01] MEDS ORDERED: IPRATROPIUM BROMIDE 0.5 MG/2.5 ML NEB SOLUTION NEB PRN (21:15)
[2019-11-01] MEDS ORDERED: BISACODYL 10 MG RECTAL RECTAL SUPPOSITORY PR PRN (21:15)
[2019-11-01] MEDS ORDERED: MORPHINE SULFATE 2 MG/ML SYRINGE IVP PRN (21:15)
[2019-11-01] MEDS ORDERED: ZOLPIDEM TARTRATE 5 MG TABLET PO PRN (21:15)
[2019-11-02] VITALS (8 sets, daily range): BP systolic 99–140; BP diastolic 44–74
[2019-11-02] MEDS: NITROGLYCERIN 2% (1 GM=INCH) PACKET TP SCH ×4 (00:41→17:40)
[2019-11-02 06:41] LABS: HEMATOCRIT 23.7 % (36-46); MEAN CORPUSCULAR HGB CONC 33.6 G/dL (31.0-37.0); MEAN CORPUSCULAR VOLUME 86 fL (80-100); PLATELET COUNT (AUTO) 56 K/uL (150-450); RED BLOOD CELL COUNT(AUTO) 2.75 MIL/uL (4.00-5.20)
[2019-11-02 06:46] LABS: % IRON SATURATION 34.7 % (22-44); ALBUMIN 2.9 g/dL (3.4-5.0); CALCIUM, TOTAL 8.8 mg/dL (8.8-10.5); CREATININE 5.61 mg/dL (0.60-1.30); POTASSIUM 3.8 mmol/L (3.5-5.1); TOTAL PROTEIN, SERUM 6.8 g/dL (6.4-8.2)
[2019-11-02 08:21] LABS: BAND NEUTROPHILS % (MANUAL) 5 % (0-5); EOSINOPHILS % (MANUAL) 1 % (1-6); LYMPHOCYTES % (MANUAL) 26 % (22-44); MONOCYTES % (MANUAL) 4 % (2-9); SEGMENTED NEUTROPHILS % 64 % (40-70)
[2019-11-02] MEDS: EPOETIN ALFA 10,000 UNITS/ML VIAL SQ SCH ×2 (09:00→18:49)
[2019-11-02] MEDS: PANTOPRAZOLE SODIUM 40 MG DR TABLET PO SCH (09:00)
[2019-11-02] MEDS ORDERED: LISINOPRIL 10 MG TABLET PO SCH (09:00)
[2019-11-02] MEDS: VITAMIN B COMP/VIT C/FOLIC ACID CAPSULE PO SCH (09:00)
[2019-11-02] MEDS: HydrALAZINE HCL 25 MG TABLET PO SCH ×2 (09:00→20:49)
[2019-11-02] MEDS: DOCUSATE SODIUM 100 MG CAPSULE PO SCH ×4 (09:00→21:00)
[2019-11-02] MEDS: FUROSEMIDE 40 MG TABLET PO SCH (09:00)
[2019-11-02] MEDS: CARVEDILOL 12.5 MG TABLET PO SCH ×2 (09:00→20:49)
[2019-11-02] MEDS ORDERED: VITAMIN B COMP/VIT C/FOLIC ACID CAPSULE PO SCH (09:00)
[2019-11-02] MEDS: ATORVASTATIN CALCIUM 40 MG TABLET PO SCH (09:00)
[2019-11-02 12:45] LABS: SPECIMENTYPE,BODY FLUID THORACENTESIS
[2019-11-02 14:57] LABS: APPEARANCE,SPUN,BODY FLUID CLEAR (CLEAR); APPEARANCE,UNSPUN,BODY FLUID BLOODY (CLEAR)
[2019-11-02 14:58] LABS: BASOPHILS,BODY FLUID 0 %; COLOR,BODY FLUID RED (LT YELLOW); EOSINOPHILS,BF (ANAL) 3 %; LYMPHOCYTES,BODY FLUID 10 %; MONOCYTES,BODY FLUID 17 %; NEUTROPHILS,BODY FLUID 43 %; OTHER CELLS,BODY FLUID 27; TOTAL VOLUME,BODY FLUID 670 mL; WBC, BODY FLUID 50 /cu. mm.
[2019-11-02] MEDS ORDERED: HEPARIN SODIUM,PORCINE 5,000 UNITS/ML VIAL SQ SCH (16:00)
[2019-11-02] MEDS: ACETAMINOPHEN 325 MG TABLET PO PRN (20:48)
[2019-11-02] MEDS: HEPARIN SODIUM,PORCINE 5,000 UNITS/ML VIAL SQ SCH ×2 (20:49→21:00)
[2019-11-03] MEDS: NITROGLYCERIN 2% (1 GM=INCH) PACKET TP SCH ×2 (00:17→06:03)
[2019-11-03 04:25] VITALS: BP 100/46
[2019-11-03 06:56] LABS: ALBUMIN 2.9 g/dL (3.4-5.0); CALCIUM, TOTAL 8.8 mg/dL (8.8-10.5); CREATININE 4.12 mg/dL (0.60-1.30); POTASSIUM 3.8 mmol/L (3.5-5.1); TOTAL PROTEIN, SERUM 6.8 g/dL (6.4-8.2)
[2019-11-03 07:08] LABS: BASOPHILS % (AUTO) 1.2 % (0.0-2.0); EOSINOPHILS % (AUTO) 9.6 % (1.0-6.0); HEMATOCRIT 24.6 % (36-46); HEMOGLOBIN 7.8 g/dL (12.0-16.0); LYMPHOCYTES # (AUTO) 0.3 K/uL (1.0-4.8); LYMPHOCYTES % (AUTO) 7.5 % (22.0-44.0); MEAN CORPUSCULAR HEMOGLOBIN 27.8 pg (26.0-34.0); MEAN CORPUSCULAR HGB CONC 31.6 G/dL (31.0-37.0); MEAN CORPUSCULAR VOLUME 88 fL (80-100); MONOCYTES # (AUTO) 0.7 K/uL (0.1-1.0); MONOCYTES % (AUTO) 16.5 % (2.0-9.0); NEUTROPHILS # (AUTO) 2.7 K/uL (1.8-7.7); NEUTROPHILS % (AUTO) 65.2 % (40.0-70.0); RED CELL DISTRIBUTION WIDTH 18.1 % (11.5-14.5)
[2019-11-03 07:47] LABS: PLATELET COUNT (AUTO) 44 K/uL (150-450)
[2019-11-03] MEDS: HEPARIN SODIUM,PORCINE 5,000 UNITS/ML VIAL SQ SCH (09:00)
[2019-11-03] MEDS: HydrALAZINE HCL 25 MG TABLET PO SCH (09:00)
[2019-11-03] MEDS: PANTOPRAZOLE SODIUM 40 MG DR TABLET PO SCH (09:12)
[2019-11-03] MEDS: ACETAMINOPHEN 325 MG TABLET PO PRN (09:12)
[2019-11-03] MEDS: DOCUSATE SODIUM 100 MG CAPSULE PO SCH (09:12)
[2019-11-03] MEDS: CARVEDILOL 12.5 MG TABLET PO SCH (09:12)
[2019-11-03] MEDS: ATORVASTATIN CALCIUM 40 MG TABLET PO SCH (09:18)
[2019-11-03] MEDS: VITAMIN B COMP/VIT C/FOLIC ACID CAPSULE PO SCH (09:18)
[2019-11-03] MEDS: FUROSEMIDE 40 MG TABLET PO SCH (09:18)
== END 2019-11-03 13:10 | disposition home or self-care (01) | DRG 186 ==
LOC: EMS 12:02 → 6N 16:01
PROVIDERS: ADMIT Hospitalist; ATTEND Hospitalist
PROC: 5A1D70Z Performance of Urinary Filtration, Intermittent, Less than 6 Hours Per Day (ICD-10-PCS; principal; 2019-11-02)
PROC: 0W993ZZ Drainage of Right Pleural Cavity, Percutaneous Approach (ICD-10-PCS; 2019-11-02)
DX: J90 Pleural effusion, not elsewhere classified (principal); N18.6 End stage renal disease; E43 Unspecified severe protein-calorie malnutrition; I12.0 Hypertensive chronic kidney disease with stage 5 chronic kidney disease or end stage renal disease; D61.818 Other pancytopenia; D64.9 Anemia, unspecified; E78.5 Hyperlipidemia, unspecified; I73.9 Peripheral vascular disease, unspecified; Z95.1 Presence of aortocoronary bypass graft; Z99.2 Dependence on renal dialysis; I25.10 Atherosclerotic heart disease of native coronary artery without angina pectoris; E78.00 Pure hypercholesterolemia, unspecified; Z90.49 Acquired absence of other specified parts of digestive tract; D69.6 Thrombocytopenia, unspecified; I07.1 Rheumatic tricuspid insufficiency; Z20.828 Contact with and (suspected) exposure to other viral communicable diseases; Z68.20 Body mass index [BMI] 20.0-20.9, adult
CPT/HCPCS: 32555; 71250; 76942; 82042; 82150; 82945; 83540; 83550; 83615; 84157; 87070; 87081; 87205; 87340; 88108; 89051; 93005; J0885; J1644; 36415-L1; 36415-TC; 71045-TC; 87635; U0003-CS